=== PATIENT | female | born 1950 | race African-American/Black ===

== ENCOUNTER 2019-05-29 09:24 | Inpatient (IN) | payer OTHER ==
[~2019-05-29] VITALS: Ht 165.1 cm; Wt 79.1 kg
[~2019-05-29 09:24] MED LIST: BACL20TA PO; BUPR-4 PO; DICL100T11 PO; FERR325T50 PO; FURO1TAB31 PO; OXY20CRT PO; OXYC10TA44 PO; POT20T PO; PREG50CA PO; SERT25TA84 PO
[2019-05-29 09:54] LABS: Hemoglobin 8.7 g/dL (12.2-16.2); Red Cell Distribution Width 18.5 % (11.8-14.3)
[2019-05-29 09:58] LABS: Hematocrit 29.6 % (36.0-46.0); Mean Corpuscular Hemoglobin 24.3 pg (28.0-32.0); Mean Corpuscular Hgb Conc. 29.3 g/dL (32.0-36.0); Mean Corpuscular Volume 82.9 fL (80.0-100.0); Platelet Count (auto) 342 10^3/uL (140-450); Red Blood Cells 3.57 10^6/uL (4.0-5.20)
[2019-05-29 10:06] LABS: Band Neutrophils % (manual) 0; Basophils % (manual) 0 (0.0-2.0); Blast Cells 0; Eosinophils % (manual) 0 (0-7); Metamyelocytes % 0; Monocytes % (manual) 0 (0-12); Myelocytes % 0; Promyelocytes % 0; Reactive Lymphocytes 0; White Blood Cell 117.1 10^3/uL (4.4-10.8)
[2019-05-29 10:10] LABS: INR 1.12 (0.9-1.15); Partial Thromboplastin Time 33.4 sec (23.64-32.05)
[2019-05-29 10:12] LABS: Calcium 8.9 mg/dL (8.5-10.1); Potassium 3.3 mmol/L (3.5-5.1)
[2019-05-29 10:20] LABS: Albumin 2.5 g/dL (3.4-5.0); BUN/Creatinine Ratio 35.2; Bilirubin, Total 0.4 mg/dL (0.2-1.0); Total Protein 5.8 g/dL (6.4-8.2)
[2019-05-29 11:35] LABS: Urine Bacteria MOD /hpf (None Seen); Urine Blood 1+ /uL (Negative); Urine Mucus FEW (None Seen); Urine Specific Gravity 1.009 (1.001-1.035); Urine WBC 424 /hpf (0 - 5); Urine WBC Clumps PRESENT /hpf (None Seen)
[2019-05-29 11:44] LABS: Amphetamine Screen, Urine NEGATIVE (NEGATIVE); Barbiturate Scree,Urine NEGATIVE (NEGATIVE); Benzodiazephine Screen, Urine NEGATIVE (NEGATIVE); Cannabinoid Screen, Urine NEGATIVE (NEGATIVE); Cocaine Screen, Urine NEGATIVE (NEGATIVE); Opiate Scree,Urine POSITIVE (NEGATIVE); Phencyclidine Screen, Urine NEGATIVE (NEGATIVE)
[2019-05-29 11:55] LABS: Lymphocytes % (manual) 94 (10.0-50.0)
[2019-05-29 11:59] LABS: Alcohol, Urine < 3.0 mg/dL (0-5)
[2019-05-29] MEDS ORDERED: cefTRIAXone 1GM/50ML D5W 50 ML IV ONE (12:15)
[2019-05-29] MEDS ORDERED: POTASSIUM EFFERVESENT TAB 25 MEQ PO ONE (12:15)
[2019-05-29] MEDS ORDERED: HYDROcodone-ACET 5/325MG TAB PO PRN (12:45)
[2019-05-29] MEDS ORDERED: ACETAMINOPHEN 500 MG TAB PO PRN (12:45)
[2019-05-29] MEDS ORDERED: NITROGLYCERIN 0.4 MG SL TAB SL PRN (12:45)
[2019-05-29] MEDS ORDERED: MORPHINE SULF INJ 2 MG/ML SYRINGE 1ML IV PRN (12:45)
[2019-05-29] MEDS ORDERED: ONDANSETRON HCL 4 MG/2 ML VIAL IV PRN (12:45)
[2019-05-29] MEDS ORDERED: SERTRALINE HCL 50 MG TAB PO ONE (13:00)
[2019-05-29] MEDS ORDERED: PREGABALIN 25 MG CAP PO SCH (14:00)
[2019-05-29 15:36] VITALS: BP 137/68
[2019-05-29] MEDS ORDERED: LORA0.5T12 PO (16:19)
[2019-05-29] MEDS ORDERED: DICL75TA2 PO (16:54)
[2019-05-29] MEDS ORDERED: GABA300C10 PO (16:54)
[2019-05-29] MEDS ORDERED: [UNRECOGNIZED DRUG - CODE] PO (16:54)
[2019-05-29 20:00] VITALS: BP 142/53
[2019-05-29 21:48] VITALS: BP 142/53
[2019-05-30 05:22] VITALS: BP 121/70
[2019-05-30 05:40] LABS: Hemoglobin 8.2 g/dL (12.2-16.2); Red Cell Distribution Width 18.1 % (11.8-14.3)
[2019-05-30 05:45] LABS: Mean Corpuscular Hemoglobin 24.2 pg (28.0-32.0); Mean Corpuscular Hgb Conc. 29.4 g/dL (32.0-36.0); Mean Corpuscular Volume 82.1 fL (80.0-100.0); Platelet Count (auto) 344 10^3/uL (140-450); Red Blood Cells 3.41 10^6/uL (4.0-5.20)
[2019-05-30 06:02] LABS: BUN/Creatinine Ratio 34.4; Calcium 8.8 mg/dL (8.5-10.1)
[2019-05-30 06:13] LABS: White Blood Cell 102.2 10^3/uL (4.4-10.8)
[2019-05-30 06:14] LABS: Band Neutrophils % (manual) 0; Basophils % (manual) 0 (0.0-2.0); Blast Cells 0; Eosinophils % (manual) 0 (0-7); Metamyelocytes % 0; Myelocytes % 0; Promyelocytes % 0; Reactive Lymphocytes 0
[2019-05-30 07:13] LABS: Lymphocytes % (manual) 91 (10.0-50.0); Monocytes % (manual) 2 (0-12)
[2019-05-30 08:00] VITALS: BP 155/55
[2019-05-30] MEDS: FAMOTIDINE 20 MG TAB PO SCH (08:53)
[2019-05-30] MEDS: MORPHINE SULF INJ 2 MG/ML SYRINGE 1ML IV PRN ×2 (08:54→15:36)
[2019-05-30] MEDS: SERTRALINE HCL 50 MG TAB PO SCH (08:54)
[2019-05-30] MEDS ORDERED: cefTRIAXone 1GM/50ML D5W 50 ML IV SCH (09:00)
[2019-05-30 12:00] VITALS: BP 144/52
[2019-05-30 17:00] VITALS: BP 149/74
[2019-05-30 20:00] VITALS: BP 149/72
[2019-05-30 22:00] VITALS: BP 149/72
[2019-05-30] MEDS ORDERED: GABAPENTIN 100 MG CAP ONE (22:07)
[2019-05-30] MEDS: MUPIROCIN 2% OINT 15gm or 22gm EACHNOSTRI SCH (22:38)
[2019-05-30] MEDS: LORazepam 0.5 MG TAB PO SCH (22:39)
[2019-05-30] MEDS: buPROPion HCL 100 MG TAB PO SCH (22:39)
[2019-05-30] MEDS: GABAPENTIN 300 MG CAP PO SCH (22:39)
[2019-05-31 01:57] VITALS: BP 149/72
[2019-05-31] MEDS: OXYCODONE W/ ACETAMINOPHEN 5/325MG TABLET PO PRN ×2 (03:00→11:08)
[2019-05-31 05:00] VITALS: BP 156/70
[2019-05-31] MEDS ORDERED: GABAPENTIN 100 MG CAP ONE (05:21)
[2019-05-31] MEDS: LORazepam 0.5 MG TAB PO SCH ×3 (05:27→23:46)
[2019-05-31] MEDS: buPROPion HCL 100 MG TAB PO SCH ×3 (05:28→23:46)
[2019-05-31] MEDS: GABAPENTIN 300 MG CAP PO SCH ×5 (05:28→23:48)
[2019-05-31 05:34] LABS: Hemoglobin 8.6 g/dL (12.2-16.2)
[2019-05-31 05:39] LABS: Hematocrit 29.9 % (36.0-46.0); Mean Corpuscular Hemoglobin 23.6 pg (28.0-32.0); Mean Corpuscular Hgb Conc. 28.7 g/dL (32.0-36.0); Mean Corpuscular Volume 82.2 fL (80.0-100.0); Platelet Count (auto) 353 10^3/uL (140-450); Red Blood Cells 3.63 10^6/uL (4.0-5.20); Red Cell Distribution Width 18.1 % (11.8-14.3)
[2019-05-31 05:45] LABS: White Blood Cell 106.9 10^3/uL (4.4-10.8)
[2019-05-31 05:46] LABS: Band Neutrophils % (manual) 0; Basophils % (manual) 0 (0.0-2.0); Blast Cells 0; Eosinophils % (manual) 0 (0-7); Metamyelocytes % 0; Myelocytes % 0; Promyelocytes % 0; Reactive Lymphocytes 0
[2019-05-31 05:51] LABS: INR 1.17 (0.9-1.15); Partial Thromboplastin Time 33.1 sec (23.64-32.05)
[2019-05-31 07:15] LABS: Lymphocytes % (manual) 92 (10.0-50.0); Monocytes % (manual) 1 (0-12)
[2019-05-31 08:00] VITALS: BP 148/68
[2019-05-31] MEDS: MUPIROCIN 2% OINT 15gm or 22gm EACHNOSTRI SCH ×2 (10:02→23:47)
[2019-05-31] MEDS: ENOXAPARIN SOD 40 MG/0.4 ML SYRINGE SC SCH (10:03)
[2019-05-31] MEDS: FAMOTIDINE 20 MG TAB PO SCH (10:04)
[2019-05-31] MEDS: SERTRALINE HCL 50 MG TAB PO SCH (10:05)
[2019-05-31] MEDS: ERTAPENEM SOD INJ 1 GM in SODIUM CHL 0.9% 50 ML IV SCH (10:20)
[2019-05-31 12:00] VITALS: BP 143/74
[2019-05-31] MEDS: MORPHINE SULF INJ 2 MG/ML SYRINGE 1ML IV PRN ×2 (14:40→23:48)
[2019-05-31 17:02] VITALS: BP 161/80
[2019-05-31 22:00] VITALS: BP 159/76
[2019-06-01 05:00] VITALS: BP 147/67
[2019-06-01 05:29] LABS: Hemoglobin 9.5 g/dL (12.2-16.2); Mean Corpuscular Volume 82.2 fL (80.0-100.0)
[2019-06-01 05:34] LABS: Hematocrit 33.2 % (36.0-46.0); Mean Corpuscular Hemoglobin 23.6 pg (28.0-32.0); Mean Corpuscular Hgb Conc. 28.7 g/dL (32.0-36.0); Platelet Count (auto) 338 10^3/uL (140-450); Red Blood Cells 4.04 10^6/uL (4.0-5.20); Red Cell Distribution Width 18.6 % (11.8-14.3)
[2019-06-01 05:40] LABS: White Blood Cell 108.3 10^3/uL (4.4-10.8)
[2019-06-01 05:42] LABS: Band Neutrophils % (manual) 0; Basophils % (manual) 0 (0.0-2.0); Blast Cells 0; Eosinophils % (manual) 0 (0-7); Metamyelocytes % 0; Myelocytes % 0; Promyelocytes % 0; Reactive Lymphocytes 0
[2019-06-01 05:49] LABS: Calcium 9.1 mg/dL (8.5-10.1); Potassium 3.5 mmol/L (3.5-5.1)
[2019-06-01 05:52] LABS: BUN/Creatinine Ratio 18.2
[2019-06-01 06:02] LABS: Lymphocytes % (manual) 95 (10.0-50.0); Monocytes % (manual) 1 (0-12)
[2019-06-01] MEDS: LORazepam 0.5 MG TAB PO SCH ×3 (06:26→23:00)
[2019-06-01] MEDS: buPROPion HCL 100 MG TAB PO SCH ×3 (06:26→23:01)
[2019-06-01] MEDS: MORPHINE SULF INJ 2 MG/ML SYRINGE 1ML IV PRN ×2 (07:14→23:02)
[2019-06-01] MEDS: OXYCODONE W/ ACETAMINOPHEN 5/325MG TABLET PO PRN ×2 (08:54→19:06)
[2019-06-01 09:08] VITALS: BP 144/65
[2019-06-01] MEDS: ENOXAPARIN SOD 40 MG/0.4 ML SYRINGE SC SCH (10:28)
[2019-06-01] MEDS: MUPIROCIN 2% OINT 15gm or 22gm EACHNOSTRI SCH ×2 (10:29→23:00)
[2019-06-01] MEDS: SERTRALINE HCL 50 MG TAB PO SCH (10:29)
[2019-06-01] MEDS: FAMOTIDINE 20 MG TAB PO SCH (10:29)
[2019-06-01] MEDS: ERTAPENEM SOD INJ 1 GM in SODIUM CHL 0.9% 50 ML IV SCH (11:02)
[2019-06-01 12:40] VITALS: BP 159/81
[2019-06-01 17:24] VITALS: BP 171/76
[2019-06-01] MEDS ORDERED: LEVO500T21 PO (21:04)
[2019-06-01] MEDS ORDERED: CLIN300C8 PO (21:04)
[2019-06-01] MEDS ORDERED: PROBTAB12 OR (21:04)
[2019-06-01 22:00] VITALS: BP 158/90
[2019-06-01] MEDS: GABAPENTIN 300 MG CAP PO SCH (23:01)
[2019-06-01] MEDS: CLINDAMYCIN HCL 150 MG CAP PO SCH (23:01)
[2019-06-02 05:15] LABS: Hematocrit 34.3 % (36.0-46.0); Hemoglobin 9.7 g/dL (12.2-16.2); Mean Corpuscular Hemoglobin 23.2 pg (28.0-32.0); Mean Corpuscular Hgb Conc. 28.4 g/dL (32.0-36.0); Mean Corpuscular Volume 81.9 fL (80.0-100.0); Platelet Count (auto) 350 10^3/uL (140-450); Red Blood Cells 4.19 10^6/uL (4.0-5.20)
[2019-06-02 05:19] VITALS: BP 159/89
[2019-06-02 05:19] LABS: Band Neutrophils % (manual) 0; Basophils % (manual) 0 (0.0-2.0); Blast Cells 0; Eosinophils % (manual) 0 (0-7); Metamyelocytes % 0; Myelocytes % 0; Promyelocytes % 0; Reactive Lymphocytes 0
[2019-06-02 05:35] LABS: BUN/Creatinine Ratio 12.9; Calcium 9.3 mg/dL (8.5-10.1); Potassium 4.5 mmol/L (3.5-5.1)
[2019-06-02 05:37] LABS: Lymphocytes % (manual) 95 (10.0-50.0); Monocytes % (manual) 1 (0-12)
[2019-06-02] MEDS: CLINDAMYCIN HCL 150 MG CAP PO SCH (07:13)
[2019-06-02] MEDS: LORazepam 0.5 MG TAB PO SCH ×3 (07:13→09:01)
[2019-06-02] MEDS: buPROPion HCL 100 MG TAB PO SCH ×3 (07:13→21:58)
[2019-06-02 08:42] VITALS: BP_SYST 15; BP_SYST 158; BP_DIAS 80
[2019-06-02] MEDS ORDERED: VANCOMYCIN 1GM/250ML 250 ML IV ONE (08:45)
[2019-06-02] MEDS ORDERED: VANCOMYCIN PER PHARMACY 0 MG IV SCH (08:45)
[2019-06-02] MEDS ORDERED: amLODIPine BESYLATE 5 MG TAB PO ONE (08:45)
[2019-06-02] MEDS ORDERED: hydrALAZINE HCL 20 MG/ML VL IV PRN (08:45)
[2019-06-02] MEDS: GABAPENTIN 300 MG CAP PO SCH (08:46)
[2019-06-02] MEDS ORDERED: levoFLOXacin 500 MG TAB PO SCH (10:00)
[2019-06-02] MEDS: ENOXAPARIN SOD 40 MG/0.4 ML SYRINGE SC SCH ×2 (10:00→11:48)
[2019-06-02] MEDS ORDERED: NS IV SCH ×2 (11:00)
[2019-06-02] MEDS ORDERED: MEROPENEM 1 GM/50 ML IV SCH ×2 (11:00)
[2019-06-02] MEDS: FAMOTIDINE 20 MG TAB PO SCH (11:49)
[2019-06-02] MEDS: SERTRALINE HCL 50 MG TAB PO SCH (11:50)
[2019-06-02] MEDS: MUPIROCIN 2% OINT 15gm or 22gm EACHNOSTRI SCH ×2 (11:50→21:58)
[2019-06-02] MEDS: OXYCODONE W/ ACETAMINOPHEN 5/325MG TABLET PO PRN (12:09)
[2019-06-02 12:50] VITALS: BP 167/91
[2019-06-02] MEDS: MEROPENEM 1 GM/50 ML IV SCH ×2 (14:21)
[2019-06-02] MEDS: NS IV SCH ×2 (14:21)
[2019-06-02] MEDS: amLODIPine BESYLATE 5 MG TAB PO SCH (14:22)
[2019-06-02 16:59] VITALS: BP 157/79
[2019-06-02] MEDS ORDERED: LORazepam 0.5 MG TAB PO SCH (18:00)
[2019-06-02] MEDS ORDERED: GABAPENTIN 300 MG CAP PO SCH (18:00)
[2019-06-02] MEDS ORDERED: ACETAMINOPHEN 500 MG TAB PO PRN (19:30)
[2019-06-02] MEDS ORDERED: KETOROLAC TROMETH 15 mg/ml 1ML VL IV PRN (19:30)
[2019-06-02 21:57] VITALS: BP 137/79
[2019-06-02] MEDS: VANCOMYCIN 1GM/250ML 250 ML IV SCH (22:01)
[2019-06-02 22:50] VITALS: BP 137/79
[2019-06-03] MEDS: NS IV SCH ×8 (01:03→22:27)
[2019-06-03] MEDS: MEROPENEM 1 GM/50 ML IV SCH ×8 (01:03→22:27)
[2019-06-03 05:05] LABS: Hematocrit 34.3 % (36.0-46.0); Hemoglobin 10.6 g/dL (12.2-16.2); Mean Corpuscular Hemoglobin 24.4 pg (28.0-32.0); Mean Corpuscular Hgb Conc. 30.9 g/dL (32.0-36.0); Platelet Count (auto) 370 10^3/uL (140-450); Red Blood Cells 4.35 10^6/uL (4.0-5.20); Red Cell Distribution Width 17.5 % (11.8-14.3)
[2019-06-03 05:12] LABS: Band Neutrophils % (manual) 0; Basophils % (manual) 0 (0.0-2.0); Blast Cells 0; Eosinophils % (manual) 0 (0-7); Metamyelocytes % 0; Myelocytes % 0; Promyelocytes % 0; Reactive Lymphocytes 0; White Blood Cell 194.9 10^3/uL (4.4-10.8)
[2019-06-03 05:22] LABS: BUN/Creatinine Ratio 13.2; Calcium 9.3 mg/dL (8.5-10.1); Potassium 4.2 mmol/L (3.5-5.1)
[2019-06-03 05:26] VITALS: BP 148/76
[2019-06-03] MEDS: buPROPion HCL 100 MG TAB PO SCH ×3 (06:00→22:28)
[2019-06-03 06:17] LABS: Lymphocytes % (manual) 96 (10.0-50.0); Monocytes % (manual) 1 (0-12)
[2019-06-03 09:00] VITALS: BP 156/64
[2019-06-03] MEDS: MUPIROCIN 2% OINT 15gm or 22gm EACHNOSTRI SCH ×2 (09:57→22:54)
[2019-06-03] MEDS: SERTRALINE HCL 50 MG TAB PO SCH (09:57)
[2019-06-03] MEDS: VANCOMYCIN 1GM/250ML 250 ML IV SCH ×2 (09:57→18:22)
[2019-06-03] MEDS: FAMOTIDINE 20 MG TAB PO SCH (09:59)
[2019-06-03] MEDS: amLODIPine BESYLATE 5 MG TAB PO SCH (09:59)
[2019-06-03] MEDS: ENOXAPARIN SOD 40 MG/0.4 ML SYRINGE SC SCH (09:59)
[2019-06-03 13:00] VITALS: BP 124/80
[2019-06-03 17:00] VITALS: BP 181/85
[2019-06-03 22:00] VITALS: BP 157/88
[2019-06-03 22:10] LABS: Albumin 3.1 g/dL (3.4-5.0); BUN/Creatinine Ratio 13.3; Calcium 8.9 mg/dL (8.5-10.1); Potassium 4.7 mmol/L (3.5-5.1)
[2019-06-03 22:13] LABS: Bilirubin, Total 0.6 mg/dL (0.2-1.0); Total Protein 6.2 g/dL (6.4-8.2)
[2019-06-03 22:17] LABS: Free T4 (Free Thyroxine) 1.54 ng/dL (0.89-1.76)
[2019-06-03 22:18] LABS: Folate (Folic Acid) > 24.00 ng/mL (5.38-24)
[2019-06-03] MEDS: MIRTAZAPINE 30 MG TAB PO SCH (22:51)
[2019-06-03] MEDS: hydroxyUREA 500 MG CAP PO SCH (22:54)
[2019-06-04 00:45] VITALS: BP 139/71
[2019-06-04] MEDS: VANCOMYCIN 1GM/250ML 250 ML IV SCH ×2 (03:40→17:08)
[2019-06-04 04:00] VITALS: BP 169/75
[2019-06-04 05:14] LABS: Hematocrit 35.8 % (36.0-46.0); Hemoglobin 10.6 g/dL (12.2-16.2); Mean Corpuscular Hgb Conc. 29.5 g/dL (32.0-36.0); Platelet Count (auto) 402 10^3/uL (140-450); Red Blood Cells 4.58 10^6/uL (4.0-5.20)
[2019-06-04 05:16] LABS: White Blood Cell 230.7 10^3/uL (4.4-10.8)
[2019-06-04 05:22] LABS: Band Neutrophils % (manual) 0; Basophils % (manual) 0 (0.0-2.0); Blast Cells 0; Eosinophils % (manual) 0 (0-7); Metamyelocytes % 0; Myelocytes % 0; Promyelocytes % 0; Reactive Lymphocytes 0
[2019-06-04] MEDS: buPROPion HCL 100 MG TAB PO SCH ×3 (05:28→20:12)
[2019-06-04 05:44] LABS: Albumin 3.4 g/dL (3.4-5.0); Calcium 9.5 mg/dL (8.5-10.1); Potassium 3.6 mmol/L (3.5-5.1)
[2019-06-04 05:50] LABS: BUN/Creatinine Ratio 15.9; Bilirubin, Total 0.6 mg/dL (0.2-1.0); Total Protein 6.1 g/dL (6.4-8.2)
[2019-06-04] MEDS: MEROPENEM 1 GM/50 ML IV SCH ×6 (06:09→19:56)
[2019-06-04] MEDS: NS IV SCH ×6 (06:09→19:56)
[2019-06-04 06:32] LABS: Lymphocytes % (manual) 93 (10.0-50.0); Monocytes % (manual) 1 (0-12)
[2019-06-04 08:00] VITALS: BP 158/84
[2019-06-04] MEDS: SODIUM CHLORIDE 0.9% 1,000 ML IV SCH ×2 (09:34→23:57)
[2019-06-04] MEDS: hydroxyUREA 500 MG CAP PO SCH ×2 (10:00→20:11)
[2019-06-04] MEDS: OXYBUTYNIN CHL 5 MG TAB PO SCH ×2 (10:00→20:11)
[2019-06-04] MEDS: ALLOPURINOL 300 MG TAB PO SCH (10:06)
[2019-06-04] MEDS: FAMOTIDINE 20 MG TAB PO SCH (10:06)
[2019-06-04] MEDS: amLODIPine BESYLATE 5 MG TAB PO SCH (10:06)
[2019-06-04] MEDS: SERTRALINE HCL 50 MG TAB PO SCH (10:07)
[2019-06-04] MEDS: ENOXAPARIN SOD 40 MG/0.4 ML SYRINGE SC SCH (10:07)
[2019-06-04] MEDS: MUPIROCIN 2% OINT 15gm or 22gm EACHNOSTRI SCH (10:10)
[2019-06-04 12:00] VITALS: BP 161/77
[2019-06-04] MEDS: LACTULOSE 20Gm/30ML SOLN PO SCH ×2 (14:22→20:11)
[2019-06-04 16:00] VITALS: BP 160/69
[2019-06-04 20:00] VITALS: BP 147/60
[2019-06-04] MEDS: MIRTAZAPINE 30 MG TAB PO SCH (20:11)
[2019-06-05] VITALS: BP 157/66
[2019-06-05 04:00] VITALS: BP 155/65
[2019-06-05 04:06] LABS: RPR Non Reactive (Non Reactive)
[2019-06-05 05:19] LABS: Hemoglobin 10.5 g/dL (12.2-16.2)
[2019-06-05 05:22] LABS: Hematocrit 35.7 % (36.0-46.0); Mean Corpuscular Hemoglobin 23.6 pg (28.0-32.0); Mean Corpuscular Hgb Conc. 29.4 g/dL (32.0-36.0); Mean Corpuscular Volume 80.2 fL (80.0-100.0); Platelet Count (auto) 326 10^3/uL (140-450); Red Blood Cells 4.45 10^6/uL (4.0-5.20); Red Cell Distribution Width 17.9 % (11.8-14.3)
[2019-06-05 05:27] LABS: Band Neutrophils % (manual) 0; Basophils % (manual) 0 (0.0-2.0); Blast Cells 0; Eosinophils % (manual) 0 (0-7); Metamyelocytes % 0; Myelocytes % 0; Promyelocytes % 0; Reactive Lymphocytes 0
[2019-06-05] MEDS: VANCOMYCIN 1GM/250ML 250 ML IV SCH ×2 (05:28→18:03)
[2019-06-05 05:38] LABS: Albumin 3.3 g/dL (3.4-5.0); Calcium 9.3 mg/dL (8.5-10.1)
[2019-06-05] MEDS: LACTULOSE 20Gm/30ML SOLN PO SCH ×3 (05:38→20:08)
[2019-06-05] MEDS: buPROPion HCL 100 MG TAB PO SCH ×3 (05:38→20:53)
[2019-06-05 05:43] LABS: Bilirubin, Total 0.5 mg/dL (0.2-1.0); Total Protein 5.9 g/dL (6.4-8.2)
[2019-06-05] MEDS: MEROPENEM 1 GM/50 ML IV SCH ×6 (06:42→20:51)
[2019-06-05] MEDS: NS IV SCH ×6 (06:42→20:51)
[2019-06-05 07:40] VITALS: BP 153/77
[2019-06-05 07:42] LABS: Lymphocytes % (manual) 96 (10.0-50.0); Monocytes % (manual) 1 (0-12)
[2019-06-05] MEDS: ENOXAPARIN SOD 40 MG/0.4 ML SYRINGE SC SCH (10:16)
[2019-06-05] MEDS: ALLOPURINOL 300 MG TAB PO SCH (10:17)
[2019-06-05] MEDS: hydroxyUREA 500 MG CAP PO SCH ×2 (10:17→20:52)
[2019-06-05] MEDS: OXYBUTYNIN CHL 5 MG TAB PO SCH ×2 (10:17→20:52)
[2019-06-05] MEDS: amLODIPine BESYLATE 5 MG TAB PO SCH (10:19)
[2019-06-05] MEDS: FAMOTIDINE 20 MG TAB PO SCH (10:19)
[2019-06-05] MEDS: SERTRALINE HCL 50 MG TAB PO SCH (10:20)
[2019-06-05 11:40] VITALS: BP 119/62
[2019-06-05] MEDS: SODIUM CHLORIDE 0.9% 1,000 ML IV SCH ×2 (11:52→21:03)
[2019-06-05] MEDS: POTASSIUM CHL 20MEQ/100ML 100 ML IV SCH ×2 (15:27→17:30)
[2019-06-05 15:40] VITALS: BP 137/96
[2019-06-05 20:00] VITALS: BP 124/54
[2019-06-05] MEDS: MIRTAZAPINE 30 MG TAB PO SCH (20:52)
[2019-06-06] VITALS: BP 138/43
[2019-06-06] MEDS: LACTULOSE 20Gm/30ML SOLN PO SCH (04:10)
[2019-06-06] MEDS: buPROPion HCL 100 MG TAB PO SCH (04:12)
[2019-06-06] MEDS: NS IV SCH ×2 (04:14)
[2019-06-06] MEDS: MEROPENEM 1 GM/50 ML IV SCH ×2 (04:14)
[2019-06-06 05:40] LABS: Hematocrit 33.6 % (36.0-46.0); Mean Corpuscular Hemoglobin 23.8 pg (28.0-32.0); Mean Corpuscular Hgb Conc. 29.6 g/dL (32.0-36.0); Mean Corpuscular Volume 80.4 fL (80.0-100.0); Platelet Count (auto) 282 10^3/uL (140-450); Red Blood Cells 4.19 10^6/uL (4.0-5.20); Red Cell Distribution Width 17.9 % (11.8-14.3)
[2019-06-06 05:53] VITALS: BP 175/67
[2019-06-06 05:56] LABS: Albumin 3.3 g/dL (3.4-5.0); Potassium 3.3 mmol/L (3.5-5.1)
[2019-06-06 06:01] LABS: BUN/Creatinine Ratio 26.9; Bilirubin, Total 0.7 mg/dL (0.2-1.0); Total Protein 5.6 g/dL (6.4-8.2)
[2019-06-06 06:04] LABS: Band Neutrophils % (manual) 0; Basophils % (manual) 0 (0.0-2.0); Blast Cells 0; Metamyelocytes % 0; Monocytes % (manual) 0 (0-12); Myelocytes % 0; Promyelocytes % 0; Reactive Lymphocytes 0; White Blood Cell 179.2 10^3/uL (4.4-10.8)
[2019-06-06] MEDS: VANCOMYCIN 1GM/250ML 250 ML IV SCH (06:16)
[2019-06-06 06:59] LABS: Eosinophils % (manual) 1 (0-7); Lymphocytes % (manual) 97 (10.0-50.0)
[2019-06-06 09:00] VITALS: BP 145/58
[2019-06-06] MEDS: FAMOTIDINE 20 MG TAB PO SCH (10:41)
[2019-06-06] MEDS: amLODIPine BESYLATE 5 MG TAB PO SCH (10:43)
[2019-06-06] MEDS: SERTRALINE HCL 50 MG TAB PO SCH (10:44)
[2019-06-06] MEDS: ALLOPURINOL 300 MG TAB PO SCH (10:44)
[2019-06-06] MEDS: OXYBUTYNIN CHL 5 MG TAB PO SCH (10:56)
[2019-06-06] MEDS: hydroxyUREA 500 MG CAP PO SCH (10:56)
[2019-06-06] MEDS: ENOXAPARIN SOD 40 MG/0.4 ML SYRINGE SC SCH (10:56)
[2019-06-06 13:00] VITALS: BP 143/67
[2019-06-06 14:03] VITALS: BP 145/58
[2019-06-06] MEDS ORDERED: VANCOMYCIN 1GM/250ML 250 ML IV SCH (17:00)
== END 2019-06-06 16:10 | disposition hospice, home (50) | DRG 698 ==
LOC: ER 09:24 → EDBD 09:24 → TELE 09:25 → TELE-CENTR 17:44 → DOU IN ICU 06-04 00:55 → TELE-CENTR 06-06 05:19
PROVIDERS: ADMIT Nurse Practitioner Acute Care; ATTEND Hospitalist
DX: T83.031A Leakage of indwelling urethral catheter, initial encounter (principal); G93.41 Metabolic encephalopathy; L89.313 Pressure ulcer of right buttock, stage 3; N30.01 Acute cystitis with hematuria; G82.20 Paraplegia, unspecified; C91.10 Chronic lymphocytic leukemia of B-cell type not having achieved remission; L03.115 Cellulitis of right lower limb; E44.0 Moderate protein-calorie malnutrition; R09.89 Other specified symptoms and signs involving the circulatory and respiratory systems; D64.9 Anemia, unspecified; E66.01 Morbid (severe) obesity due to excess calories; N18.3 Chronic kidney disease, stage 3 (moderate); E87.6 Hypokalemia; G89.29 Other chronic pain; F32.9 Major depressive disorder, single episode, unspecified; G47.00 Insomnia, unspecified; K44.9 Diaphragmatic hernia without obstruction or gangrene; N32.81 Overactive bladder; E78.5 Hyperlipidemia, unspecified; Z51.5 Encounter for palliative care; Y83.8 Other surgical procedures as the cause of abnormal reaction of the patient, or of later complication, without mention of misadventure at the time of the procedure; G62.9 Polyneuropathy, unspecified; B95.62 Methicillin resistant Staphylococcus aureus infection as the cause of diseases classified elsewhere; M19.90 Unspecified osteoarthritis, unspecified site; Z74.01 Bed confinement status; Z79.899 Other long term (current) drug therapy; Y92.89 Other specified places as the place of occurrence of the external cause; Z68.29 Body mass index [BMI] 29.0-29.9, adult; Z91.040 Latex allergy status
CPT/HCPCS: 36415; 36600; 70450; 71045; 80048; 80053; 80202; 80307; 81001; 82140; 82607; 82746; 82784; 82805; 82962; 84439; 84443; 84484; 84550; 85007; 85027; 85610; 85730; 86592; 87040; 87081; 87086; 93005; 93306; 93971; 94660; 95819; 96365; 96379; 97110; 97163; 97530; G0378; J0696; J1335; J3480

== ENCOUNTER 2020-02-26 09:07 | Inpatient (IN) | payer OTHER ==
[~2020-02-26] VITALS: Ht 160 cm; Wt 72.1 kg
[2020-02-26] VITALS (9 sets, daily range): BP systolic 105–136; BP diastolic 28–75
[~2020-02-26 09:07] MED LIST changes: +CLIN300C8 PO; +DICL75TA2 PO; +GABA300C10 PO; +LEVO500T21 PO; +LORA0.5T20 PO; -OXY20CRT PO; +PROBTAB12 OR; +[UNRECOGNIZED DRUG - CODE] PO
[2020-02-26 10:38] LABS: Hematocrit 16.5 % (36.0-46.0); Mean Corpuscular Hgb Conc. 27.2 g/dL (32.0-36.0); Mean Corpuscular Volume 77.1 fL (80.0-100.0); Platelet Count (auto) 274 10^3/uL (140-450); Red Blood Cells 2.14 10^6/uL (4.0-5.20); White Blood Cell 28.1 10^3/uL (4.4-10.8)
[2020-02-26 10:48] LABS: Anion Gap 6 (5-15); Blood Urea Nitrogen 33 mg/dL (7-18); Calcium 8.2 mg/dL (8.5-10.1); Carbon Dioxide 24 mmol/L (21-32); Chloride 99 mmol/L (98-107); Glucose 104 mg/dL (74-106); Sodium 129 mmol/L (136-145)
[2020-02-26 10:54] LABS: Alanine Aminotransferase 9 U/L (13-56); Alkaline Phosphatase 69 U/L (45-117); Aspartate Aminotransferase 10 U/L (15-37); BUN/Creatinine Ratio 26.8; Bilirubin, Total 0.3 mg/dL (0.2-1.0); GFR African American 56 mL/min; GFR Non-African American 46 mL/min; Total Protein 4.8 g/dL (6.4-8.2)
[2020-02-26 10:56] LABS: Red Cell Distribution Width 20.9 % (11.8-14.3)
[2020-02-26 10:58] LABS: Hemoglobin 4.5 g/dL (12.2-16.2)
[2020-02-26 10:59] LABS: Basophils % (manual) 0 (0.0-2.0); Blast Cells 0; Eosinophils % (manual) 0 (0-7); Metamyelocytes % 0; Myelocytes % 0; Promyelocytes % 0; Reactive Lymphocytes 0
[2020-02-26 11:37] LABS: INR 1.07 (0.9-1.15); Partial Thromboplastin Time 27.3 sec (23.0-31.2)
[2020-02-26 11:45] LABS: Band Neutrophils % (manual) 1; Lymphocytes % (manual) 79 (10.0-50.0); Monocytes % (manual) 1 (0-12)
[2020-02-26] MEDS ORDERED: cefTRIAXone 1GM/50ML D5W 50 ML IV ONE (12:15)
[2020-02-26] MEDS ORDERED: ONDANSETRON HCL 4 MG/2 ML VIAL ONE (13:53)
[2020-02-26] MEDS ORDERED: OXYCODONE W/ ACETAMINOPHEN 5/325MG TABLET ONE (13:54)
[2020-02-26] MEDS ORDERED: OXYCODONE W/ ACETAMINOPHEN 5/325MG TABLET PO ONE (14:00)
[2020-02-26] MEDS ORDERED: ONDANSETRON HCL 4 MG/2 ML VIAL IV ONE (14:00)
[2020-02-26] MEDS ORDERED: MORPHINE SULF INJ 2 MG/ML SYRINGE 1ML IV PRN (20:00)
[2020-02-26] MEDS ORDERED: ACETAMINOPHEN 500 MG TAB PO PRN (20:00)
[2020-02-26] MEDS ORDERED: MEPERIDINE HCL (25 MG/ML) 1ML VIAL IV PRN (20:00)
[2020-02-26] MEDS ORDERED: NITROGLYCERIN 0.4 MG SL TAB SL PRN (20:00)
[2020-02-26] MEDS ORDERED: ONDANSETRON HCL 4 MG/2 ML VIAL IV PRN (20:00)
[2020-02-26] MEDS ORDERED: OXYCODONE W/ ACETAMINOPHEN 5/325MG TABLET PO PRN (21:45)
[2020-02-26] MEDS ORDERED: GABAPENTIN 100 MG CAP PO SCH (22:00)
[2020-02-26 23:06] LABS: Urine Bacteria MANY /hpf (None Seen); Urine Blood 1+ /uL (Negative); Urine Budding Yeast LOADED /hpf (None Seen); Urine Specific Gravity 1.011 (1.001-1.035); Urine WBC 85 /hpf (0 - 5)
[2020-02-27] VITALS (15 sets, daily range): BP systolic 109–131; BP diastolic 41–72
--- NOTE | 2020-02-27 01:45 | NUR ---
Telemetry admit from ER LANCE RABAGO admitted to Telemetry unit after SBAR received. Patient oriented to Frida chiang RN, unit, room, bed, and unit policies regarding patient care and visiting hours. Patient now on continuous telemetry monitoring, tele box # 29 and telemetry reading on arrival to unit is SR 75. Patient placed on bedside oxygen, weighed by bed scale and encouraged to call if they need something. All questions and concerns addressed, patient verbalized understanding. Note: Came per stretcher, awake alert oriented x 4, placed in the bed comfortably, vital signs checked.
--- NOTE | 2020-02-27 01:50 | NUR ---
Took a picture of the buttocks.
[2020-02-27] MEDS: SODIUM CHLORIDE 0.9% 1,000 ML IV SCH ×3 (02:53→23:30)
[2020-02-27 05:29] LABS: Hematocrit 24.7 % (36.0-46.0); Mean Corpuscular Hemoglobin 22.7 pg (28.0-32.0); Mean Corpuscular Hgb Conc. 27.8 g/dL (32.0-36.0); Mean Corpuscular Volume 81.7 fL (80.0-100.0); Platelet Count (auto) 273 10^3/uL (140-450); Red Blood Cells 3.02 10^6/uL (4.0-5.20); White Blood Cell 28.8 10^3/uL (4.4-10.8)
[2020-02-27] MEDS: GABAPENTIN 100 MG CAP PO SCH ×3 (05:34→21:08)
[2020-02-27] MEDS: BACLOFEN 10 MG TAB PO SCH ×4 (05:34→21:09)
[2020-02-27 05:45] LABS: Potassium 4.6 mmol/L (3.5-5.1)
[2020-02-27 05:55] LABS: BUN/Creatinine Ratio 32.5; Calcium 8.6 mg/dL (8.5-10.1)
[2020-02-27] MEDS ORDERED: CHOL20007 PO (06:09)
--- NOTE | 2020-02-27 07:09 | NUR ---
Report given to Darryl Fenton, patient is resting no respiratory distress.
[2020-02-27 07:46] LABS: Hemoglobin 6.9 g/dL (12.2-16.2)
[2020-02-27 07:47] LABS: Red Cell Distribution Width 21.1 % (11.8-14.3)
[2020-02-27 07:48] LABS: Band Neutrophils % (manual) 0; Basophils % (manual) 0 (0.0-2.0); Blast Cells 0; Metamyelocytes % 0; Myelocytes % 0; Promyelocytes % 0; Reactive Lymphocytes 0
[2020-02-27 07:51] LABS: Eosinophils % (manual) 2 (0-7); Lymphocytes % (manual) 79 (10.0-50.0); Monocytes % (manual) 1 (0-12)
[2020-02-27] MEDS: cefTRIAXone 1GM/50ML D5W 50 ML IV SCH (08:41)
[2020-02-27] MEDS: SERTRALINE HCL 50 MG TAB PO SCH (10:00)
--- NOTE | 2020-02-27 10:00 | NUR ---
WOUND CARE NOTE: IN TO SEE PATIENT AT THIS TIME PER WOUND CONSULT REQUEST. PATIENT ADMITTED TO [facility] WITH DIAGNOSIS OF SOB/UTI. SHE HAS HISTORY WITH PARALYSIS. CURRENT ISREAL SCORE IS 12. PATIENT PLACED ON GEL MATTRESS, WITH AIR PUMP. SKIN/WOUND CARE PLAN UPDATED. PATIENT NOTED TO HAVE SEVERE MASD/INTERTRIGO WITH FULL THICKNESS SKIN EROSION TO ENTIRE SACRUM, BILATERAL BUTTOCKS, UPPER POSTERIOR THIGHS/PERINEUM. WOUND PHOTOS TAKEN UPON ADMIT, BY BEDSIDE NURSE FOR REFERENCE. NO OTHER SKIN ISSUES AT THIS TIME. RECOMMEND: FREQUENT TURN SCHEDULE Q 2 HOURS, PRN CONDITION PERMITS, WITH PRESSURE REDISTRIBUTION USING PILLOWS/WEDGES, ISOFLEX GEL MATTRESS/AIR PUMP;BID/PRN APPLICATION WITH ZGUARD/XEROFORM GAUZE; DIETARY CONSULT;SKIN/WOUND CARE PLAN, CONTINUED MONITORING BY WOUND CARE TEAM. Addendum: 02/27/20 at 1707 by Ninfa Partida RN Amended: Links added.
[2020-02-27] MEDS: AZITHROMYCIN 500MG/ 250ML 250 ML IV SCH (10:05)
[2020-02-27] MEDS: FAMOTIDINE 20 MG TAB PO SCH (10:05)
[2020-02-27] MEDS ORDERED: FUROSEMIDE 20 MG/2 ML VIAL IV ONE (11:00)
--- NOTE | 2020-02-27 11:00 | NUR ---
XEROFOAM WITH Z GUARD AND ANTIFUNGAL CREAM APPLIED TO PATIENT'S BUTTOCKS AND SACRUM PER WOUND RN RECOMMENDATION. PATIENT TOLERATED IT WELL.
[2020-02-27] MEDS ORDERED: POM PO (11:42)
[2020-02-27] MEDS: SODIUM FERR GLUC 62.5MG/5ML 125 MG in SODIUM CHL 0.9% 100 ML IV SCH (15:16)
--- NOTE | 2020-02-27 16:26 | NUR ---
PRBC transfusion 1 unit started as per MD's order. No adverse reaction noted at this time.
[2020-02-27] MEDS: OXYCODONE PO PRN (16:47)
[2020-02-27] MEDS: ACETAMINOPHEN PO PRN (16:47)
--- NOTE | 2020-02-27 17:25 | NUR ---
Phoned Murphy as patient asking to use CPAP at night, her pain medications and cancer medication. gave new orders.
--- NOTE | 2020-02-27 19:13 | NUR ---
Report given to incoming RN Leola, PRBC still transfusing and patient tolerating it well and no adverse reaction noted.
--- NOTE | 2020-02-27 19:59 | NUR ---
Blood transfusion id done without reaction.
--- NOTE | 2020-02-27 20:00 | NUR ---
Opening Shift Note Assumed care of patient, awake and alert. No S/S of distress/SOB or pain. Instructed on POC and to call for assist PRN, will continue to monitor for changes Q1hr and PRN.
[2020-02-28] VITALS (7 sets, daily range): BP systolic 117–145; BP diastolic 44–84
[2020-02-28 05:40] LABS: Hematocrit 28.9 % (36.0-46.0); Hemoglobin 8.3 g/dL (12.2-16.2); Mean Corpuscular Hemoglobin 24.3 pg (28.0-32.0); Mean Corpuscular Hgb Conc. 28.9 g/dL (32.0-36.0); Mean Corpuscular Volume 84.3 fL (80.0-100.0); Platelet Count (auto) 211 10^3/uL (140-450); Red Blood Cells 3.43 10^6/uL (4.0-5.20); White Blood Cell 17.7 10^3/uL (4.4-10.8)
[2020-02-28 05:47] LABS: % Iron Saturation 4.5 % (15-50)
[2020-02-28 05:49] LABS: BUN/Creatinine Ratio 29.5; Calcium 8.4 mg/dL (8.5-10.1); Potassium 3.8 mmol/L (3.5-5.1)
[2020-02-28 05:55] LABS: Folate (Folic Acid) 18.81 ng/mL (5.38-24)
[2020-02-28] MEDS: GABAPENTIN 100 MG CAP PO SCH ×2 (05:56→13:58)
[2020-02-28] MEDS: BACLOFEN 10 MG TAB PO SCH ×3 (05:56→18:04)
[2020-02-28 06:47] LABS: Red Cell Distribution Width 21.2 % (11.8-14.3)
[2020-02-28 06:50] LABS: Basophils % (manual) 0 (0.0-2.0); Blast Cells 0; Eosinophils % (manual) 0 (0-7); Metamyelocytes % 0; Myelocytes % 0; Promyelocytes % 0
--- NOTE | 2020-02-28 07:31 | NUR ---
Report given to Darryl Fenton, patient is resting no distress.
[2020-02-28 07:49] LABS: Band Neutrophils % (manual) 1; Lymphocytes % (manual) 71 (10.0-50.0); Monocytes % (manual) 3 (0-12); Reactive Lymphocytes 11
--- NOTE | 2020-02-28 08:10 | NUR ---
Phoned physical therapy office and left message that ordered PT eval done tfor discharge.
[2020-02-28] MEDS: cefTRIAXone 1GM/50ML D5W 50 ML IV SCH (09:15)
[2020-02-28] MEDS: OXYCODONE PO PRN ×2 (09:16→18:06)
[2020-02-28] MEDS: ACETAMINOPHEN PO PRN ×2 (09:16→18:06)
[2020-02-28] MEDS ORDERED: FOLIC ACID 1 MG TAB PO SCH (10:00)
[2020-02-28] MEDS: AZITHROMYCIN 500MG/ 250ML 250 ML IV SCH (10:00)
[2020-02-28] MEDS: SERTRALINE HCL 50 MG TAB PO SCH (10:00)
[2020-02-28] MEDS: FAMOTIDINE 20 MG TAB PO SCH (10:00)
--- NOTE | 2020-02-28 11:14 | NUR ---
Nutrition Assessment/consult Notes please see attached link for complete assessment Est energy needs BW 72 [id number] kcal (20-23 kcal/kg BW r/t paraplegic) Est protein needs 72-93g (1-1.3g/kg BW r/t wounds hypoalb) Will monitor and reassess prn. Addendum: 02/28/20 at [address] Amended: Links added.
--- NOTE | 2020-02-28 11:24 | NUR ---
Assessment Patient is a 69-year-old alert and oriented female that is pleasant and able to make her needs known. Prior to admission patient lived home with Giovanni and functioned independently. Per patient she has a walker, wheelchair, power chair and deepak lift for home use. Patient is on service with [facility]. Advised patient there is a social service consult for home health vs. SNF placement. Patient is requesting SNF placement. Informed patient a physical therapy evaluation is needed and if she meets criteria MD order will be faxed to contracted facilities. Informed patient she has the right to participate in all discharge planning. Patient does not have an advance directive. Patient has been provided with information for an advanced directive. Patient verbalized understanding and agrees to discharge plan. Addendum: 02/28/20 at 1125 by HILLARY COLON Amended: Links added.
[2020-02-28] MEDS: SODIUM CHLORIDE 0.9% 1,000 ML IV SCH (12:00)
[2020-02-28] MEDS: SODIUM FERR GLUC 62.5MG/5ML 125 MG in SODIUM CHL 0.9% 100 ML IV SCH (13:12)
--- NOTE | 2020-02-28 15:30 | NUR ---
MD at Bedside Dr. Shailesh Arrington was in to see patient and MD left new orders. Patient to be discharged to SNF when bed is available and patient is aware.
--- NOTE | 2020-02-28 15:35 | NUR ---
Faxed SNF packet to [facility] and [facility], awaiting response
--- NOTE | 2020-02-28 15:36 | NUR ---
Packet is not faxed to [facility] as they are only accepting covid + patients at this time, packet also sent to [facility]
--- NOTE | 2020-02-28 15:55 | NUR ---
Spoke with Esther at [facility] they are unable to accept this patient due to her wound care needs.
--- NOTE | 2020-02-28 15:58 | NUR ---
Left vm for admissions at [facility]
--- NOTE | 2020-02-28 16:28 | NUR ---
Rec'd list of contracted SNF providers, forwarded to on-call SAYRA Figueroa.
--- NOTE | 2020-02-28 17:20 | NUR ---
PHONED DR. Shailesh CHANEL PATIENT C/O CONSTIPATION AND WANTED [facility]. LEFT MESSAGE FOR MD TO RETURN CALL.
--- NOTE | 2020-02-28 17:42 | NUR ---
D/C Planning regarding social service consult for hospice evaluation. Spoke to patient regarding new order for hospice. Per Patient she would like [facility] that MD recommended. Faxed clinical information to [facility]. Per Alexandria with [facility] patient has been accepted and service to start upon d.c day. [facility] will transport patient home via gurney 8:30pm.
[2020-02-28] MEDS ORDERED: LEVO500T21 PO (18:23)
[2020-02-28] MEDS ORDERED: FER325T PO (18:24)
--- NOTE | 2020-02-28 18:30 | NUR ---
PHONED DR. Shailesh CHANEL FOR DISCHARGE ORDER.MD NOTED TO HAVE MADE ONE AFTER AND MD RETURNED CALL.
--- NOTE | 2020-02-28 18:40 | NUR ---
RETURNED PATIENT'S OWN MEDICATIONS FROM PHARMACY.
--- NOTE | 2020-02-28 19:28 | NUR ---
REPORT GIVEN TO FOZIA SIMON. PATIENT WAITING FOR HOSPICE TRANSPORT TO HOME. PATIENT [id number] AND WAS IN NO PAIN / DISTRESS AT THIS TIME.
--- NOTE | 2020-02-28 19:45 | NUR ---
ASSUMED CARE, PT. AWAKE, NO C/O PAIN, WAITING FOR TRANSPORT TO D/C HOME WITH HOSPICE.
--- NOTE | 2020-02-28 21:10 | NUR ---
PT. HOME IN STABLE CONDITION, V/S STABLE, D/C PAPERS GIVEN, ANTENNA MACHINE OPERATOR AND IV REMOVED AND ANTENNA MACHINE OPERATOR SENT TO ICU.
--- NOTE | 2020-03-02 12:51 | NUR ---
per Maty in microbiology, patient is positive for MRSA IN blood and urine. Patient dc'd home to hospice.
== END 2020-02-28 21:10 | disposition hospice, home (50) | DRG 698 ==
LOC: ER 09:07 → EDBD 09:07 → TELE 09:08 → TELE-CENTR 23:59
PROVIDERS: ADMIT Nurse Practitioner Acute Care; ATTEND Internal Medicine
PROC: 30230N1 Transfusion of Nonautologous Red Blood Cells into Peripheral Vein, Open Approach (ICD-10-PCS; 2020-02-26)
PROC: 5A09357 Assistance with Respiratory Ventilation, Less than 24 Consecutive Hours, Continuous Positive Airway Pressure (ICD-10-PCS; principal; 2020-02-27)
DX: T83.518A Infection and inflammatory reaction due to other urinary catheter, initial encounter (principal); A41.9 Sepsis, unspecified organism; E43 Unspecified severe protein-calorie malnutrition; N17.0 Acute kidney failure with tubular necrosis; G93.41 Metabolic encephalopathy; C91.10 Chronic lymphocytic leukemia of B-cell type not having achieved remission; G82.20 Paraplegia, unspecified; D80.1 Nonfamilial hypogammaglobulinemia; D64.81 Anemia due to antineoplastic chemotherapy; G62.9 Polyneuropathy, unspecified; N18.30 Chronic kidney disease, stage 3 unspecified; D50.9 Iron deficiency anemia, unspecified; F41.9 Anxiety disorder, unspecified; G25.81 Restless legs syndrome; G47.33 Obstructive sleep apnea (adult) (pediatric); L89.159 Pressure ulcer of sacral region, unspecified stage; T45.1X5A Adverse effect of antineoplastic and immunosuppressive drugs, initial encounter; Z51.5 Encounter for palliative care; L89.309 Pressure ulcer of unspecified buttock, unspecified stage; E53.8 Deficiency of other specified B group vitamins; M54.9 Dorsalgia, unspecified; R53.81 Other malaise; G89.29 Other chronic pain; Z20.828 Contact with and (suspected) exposure to other viral communicable diseases; Z79.899 Other long term (current) drug therapy; Z82.3 Family history of stroke; Y92.89 Other specified places as the place of occurrence of the external cause; Z82.49 Family history of ischemic heart disease and other diseases of the circulatory system; Z82.5 Family history of asthma and other chronic lower respiratory diseases; Z87.440 Personal history of urinary (tract) infections; Z87.891 Personal history of nicotine dependence; Z91.14 Patient's other noncompliance with medication regimen; Z88.5 Allergy status to narcotic agent; Z88.2 Allergy status to sulfonamides; Z91.040 Latex allergy status; M25.59 Pain in other specified joint; N30.90 Cystitis, unspecified without hematuria
CPT/HCPCS: 36415; 71045; 80048; 80053; 81001; 82270; 82746; 83010; 83540; 83550; 83605; 84484; 85007; 85027; 85045; 85379; 85610; 85730; 86850; 86880; 86900; 86901; 86920; 87040; 87077; 87086; 87088; 87186; 87205; 87426; 94660; G0378; J0696; J2405

== ENCOUNTER 2020-04-05 18:03 | Inpatient (IN) | payer OTHER ==
[~2020-04-05] VITALS: Ht 167.6 cm; Wt 93.0 kg
[~2020-04-05 18:03] MED LIST changes: +CHOL20007 PO; -CLIN300C8 PO; +FER325T PO; -FERR325T50 PO; -FURO1TAB31 PO; -LEVO500T21 PO; +LEVO500T31 PO; +POM PO; -POT20T PO; -PREG50CA PO; -PROBTAB12 OR; -SERT25TA84 PO; -[UNRECOGNIZED DRUG - CODE] PO
[2020-04-05 19:11] LABS: Hematocrit 18.2 % (36.0-46.0); Mean Corpuscular Hemoglobin 22.4 pg (28.0-32.0); Mean Corpuscular Volume 86.3 fL (80.0-100.0); Platelet Count (auto) 248 10^3/uL (140-450); Red Blood Cells 2.11 10^6/uL (4.0-5.20); White Blood Cell 21.6 10^3/uL (4.4-10.8)
[2020-04-05 19:25] LABS: Red Cell Distribution Width 23.1 % (11.8-14.3)
[2020-04-05 19:27] LABS: Basophils % (manual) 0 (0.0-2.0); Blast Cells 0; Eosinophils % (manual) 0 (0-7); Hemoglobin 4.7 g/dL (12.2-16.2); Metamyelocytes % 0; Myelocytes % 0; Promyelocytes % 0; Reactive Lymphocytes 0
[2020-04-05 19:33] LABS: Albumin 1.9 g/dL (3.4-5.0); Anion Gap 6 (5-15); Blood Alcohol < 3.0 mg/dL (0-5); Blood Urea Nitrogen 39 mg/dL (7-18); Calcium 8.2 mg/dL (8.5-10.1); Carbon Dioxide 25 mmol/L (21-32); Chloride 98 mmol/L (98-107); Glucose 92 mg/dL (74-106); Potassium 5.3 mmol/L (3.5-5.1); Sodium 129 mmol/L (136-145)
[2020-04-05 19:39] LABS: Alanine Aminotransferase 12 U/L (13-56); Alkaline Phosphatase 66 U/L (45-117); Aspartate Aminotransferase 62 U/L (15-37); BUN/Creatinine Ratio 42.4; Bilirubin, Total 0.4 mg/dL (0.2-1.0); GFR African American 78 mL/min; GFR Non-African American 64 mL/min; Total Protein 4.7 g/dL (6.4-8.2)
[2020-04-05 20:03] LABS: Band Neutrophils % (manual) 5; Lymphocytes % (manual) 69 (10.0-50.0); Monocytes % (manual) 5 (0-12)
[2020-04-06] VITALS (10 sets, daily range): BP systolic 108–139; BP diastolic 32–61
[2020-04-06] MEDS ORDERED: TEMAZEPAM 15 MG CAP PO PRN (01:00)
[2020-04-06] MEDS ORDERED: ONDANSETRON HCL 4 MG/2 ML VIAL IV PRN (01:00)
[2020-04-06] MEDS ORDERED: SODIUM ZIRCONIUM CYCL 10 GM PAK PO ONE (01:00)
[2020-04-06] MEDS ORDERED: ACETAMINOPHEN 325 MG TAB PO PRN (01:00)
[2020-04-06 01:25] LABS: Urine Bacteria MANY /hpf (None Seen); Urine Blood Negative /uL (Negative); Urine Budding Yeast FEW /hpf (None Seen); Urine Hyaline Cast FEW /lpf (0 - 2); Urine Specific Gravity 1.016 (1.001-1.035); Urine WBC 187 /hpf (0 - 5); Urine WBC Clumps PRESENT /hpf (None Seen)
[2020-04-06 01:33] LABS: Amphetamine Screen, Urine NEGATIVE (NEGATIVE); Barbiturate Scree,Urine NEGATIVE (NEGATIVE); Benzodiazephine Screen, Urine POSITIVE (NEGATIVE); Cannabinoid Screen, Urine NEGATIVE (NEGATIVE); Cocaine Screen, Urine NEGATIVE (NEGATIVE); Opiate Scree,Urine NEGATIVE (NEGATIVE); Phencyclidine Screen, Urine NEGATIVE (NEGATIVE)
[2020-04-06] MEDS: cefTRIAXone 1GM/50ML D5W 50 ML IV SCH (04:30)
[2020-04-06] MEDS: buPROPion HCL 100 MG TAB PO SCH ×2 (06:42→19:47)
[2020-04-06] MEDS: GABAPENTIN 300 MG CAP PO SCH ×4 (06:50→20:01)
[2020-04-06] MEDS: FERROUS SULFATE 325 MG TAB PO SCH ×4 (08:00→18:05)
[2020-04-06] MEDS: DexAMETHasone SOD PHOS 10MG/1ML VIAL INJ IV SCH (08:52)
[2020-04-06] MEDS: AZITHROMYCIN 500MG/ 250ML 250 ML IV SCH (08:52)
[2020-04-06 08:55] LABS: Calcium 8.4 mg/dL (8.5-10.1); Potassium 4.8 mmol/L (3.5-5.1)
[2020-04-06 08:56] LABS: BUN/Creatinine Ratio 48.1
[2020-04-06] MEDS ORDERED: FAMOTIDINE 20 MG TAB PO SCH (10:00)
[2020-04-06] MEDS ORDERED: IRON SUCROSE COMPLEX 200 MG in SODIUM CHL 0.9% 100 ML IV SCH (12:00)
[2020-04-06] MEDS ORDERED: FUROSEMIDE 20 MG/2 ML VIAL IV ONE ×2 (17:00→22:15)
[2020-04-06] MEDS: HYDROcodone-ACET 5/325MG TAB PO PRN ×2 (18:05→22:44)
[2020-04-06] MEDS: POTASSIUM EFFERVESENT TAB 25 MEQ PO SCH (20:01)
[2020-04-06] MEDS: PANTOPRAZOLE 40 MG TAB PO SCH (20:01)
[2020-04-06 23:26] LABS: Red Cell Distribution Width 19.3 % (11.8-14.3); White Blood Cell 18.1 10^3/uL (4.4-10.8)
[2020-04-06 23:29] LABS: Hematocrit 29.1 % (36.0-46.0); Hemoglobin 8.8 g/dL (12.2-16.2); Mean Corpuscular Hgb Conc. 30.2 g/dL (32.0-36.0); Platelet Count (auto) 211 10^3/uL (140-450); Red Blood Cells 3.38 10^6/uL (4.0-5.20)
[2020-04-06 23:34] LABS: BUN/Creatinine Ratio 47.9; Calcium 8.5 mg/dL (8.5-10.1); Potassium 4.8 mmol/L (3.5-5.1)
[2020-04-06 23:58] LABS: Basophils % (manual) 0 (0.0-2.0); Blast Cells 0; Eosinophils % (manual) 0 (0-7); Metamyelocytes % 0; Myelocytes % 0; Promyelocytes % 0; Reactive Lymphocytes 0
[2020-04-07 01:21] LABS: Band Neutrophils % (manual) 2
[2020-04-07 01:22] LABS: Lymphocytes % (manual) 82 (10.0-50.0); Monocytes % (manual) 1 (0-12)
[2020-04-07 05:07] LABS: Hemoglobin 8.2 g/dL (12.2-16.2)
[2020-04-07 05:13] LABS: Hematocrit 27.7 % (36.0-46.0); Mean Corpuscular Hemoglobin 25.3 pg (28.0-32.0); Mean Corpuscular Hgb Conc. 29.6 g/dL (32.0-36.0); Mean Corpuscular Volume 85.5 fL (80.0-100.0); Platelet Count (auto) 225 10^3/uL (140-450); Red Blood Cells 3.23 10^6/uL (4.0-5.20); Red Cell Distribution Width 19.6 % (11.8-14.3); White Blood Cell 17.4 10^3/uL (4.4-10.8)
[2020-04-07 05:15] LABS: Albumin 1.9 g/dL (3.4-5.0); Calcium 8.2 mg/dL (8.5-10.1); Potassium 4.4 mmol/L (3.5-5.1)
[2020-04-07] MEDS: GABAPENTIN 300 MG CAP PO SCH ×2 (05:20→13:44)
[2020-04-07] MEDS: POTASSIUM EFFERVESENT TAB 25 MEQ PO SCH (05:20)
[2020-04-07] MEDS: buPROPion HCL 100 MG TAB PO SCH ×2 (05:20→18:16)
[2020-04-07 05:22] LABS: BUN/Creatinine Ratio 57.9; Bilirubin, Total 0.4 mg/dL (0.2-1.0); Total Protein 4.4 g/dL (6.4-8.2)
[2020-04-07 05:25] LABS: Basophils % (manual) 0 (0.0-2.0); Blast Cells 0; Eosinophils % (manual) 0 (0-7); Metamyelocytes % 0; Myelocytes % 0; Promyelocytes % 0
[2020-04-07 08:00] VITALS: BP 122/51
[2020-04-07] MEDS: FERROUS SULFATE 325 MG TAB PO SCH (08:00)
[2020-04-07 08:19] LABS: Band Neutrophils % (manual) 1; Lymphocytes % (manual) 66 (10.0-50.0); Monocytes % (manual) 2 (0-12); Reactive Lymphocytes 8
[2020-04-07] MEDS: cefTRIAXone 1GM/50ML D5W 50 ML IV SCH (08:30)
[2020-04-07] MEDS: HYDROcodone-ACET 5/325MG TAB PO PRN ×2 (08:31→18:17)
[2020-04-07] MEDS: AZITHROMYCIN 500MG/ 250ML 250 ML IV SCH (09:33)
[2020-04-07] MEDS: DexAMETHasone SOD PHOS 10MG/1ML VIAL INJ IV SCH (09:33)
[2020-04-07] MEDS: PANTOPRAZOLE 40 MG TAB PO SCH (09:33)
[2020-04-07] MEDS ORDERED: SODIUM FERR GLUC 62.5MG/5ML 125 MG in SODIUM CHL 0.9% 100 ML IV SCH (12:00)
[2020-04-07] MEDS ORDERED: PANT40T PO (12:21)
[2020-04-07 15:57] VITALS: BP 122/51
[2020-04-07 16:00] VITALS: BP 131/51
== END 2020-04-07 21:25 | disposition home health service (06) | DRG 811 ==
LOC: EDBD 18:03 → ER 18:06 → OVERFLOW 18:07 → CENTRAL 04-06 21:27
PROVIDERS: ADMIT Nurse Practitioner; ATTEND Hospitalist
PROC: 30233N1 Transfusion of Nonautologous Red Blood Cells into Peripheral Vein, Percutaneous Approach (ICD-10-PCS; principal; 2020-04-06)
PROC: 5A09357 Assistance with Respiratory Ventilation, Less than 24 Consecutive Hours, Continuous Positive Airway Pressure (ICD-10-PCS; 2020-04-06)
DX: D64.81 Anemia due to antineoplastic chemotherapy (principal); G93.41 Metabolic encephalopathy; J18.9 Pneumonia, unspecified organism; E87.1 Hypo-osmolality and hyponatremia; N39.0 Urinary tract infection, site not specified; C91.10 Chronic lymphocytic leukemia of B-cell type not having achieved remission; D80.1 Nonfamilial hypogammaglobulinemia; J44.0 Chronic obstructive pulmonary disease with (acute) lower respiratory infection; J91.8 Pleural effusion in other conditions classified elsewhere; E44.1 Mild protein-calorie malnutrition; G82.20 Paraplegia, unspecified; L89.159 Pressure ulcer of sacral region, unspecified stage; R41.0 Disorientation, unspecified; E86.0 Dehydration; D50.9 Iron deficiency anemia, unspecified; E53.8 Deficiency of other specified B group vitamins; E78.5 Hyperlipidemia, unspecified; G47.33 Obstructive sleep apnea (adult) (pediatric); M19.90 Unspecified osteoarthritis, unspecified site; G89.4 Chronic pain syndrome; L89.319 Pressure ulcer of right buttock, unspecified stage; T45.1X5A Adverse effect of antineoplastic and immunosuppressive drugs, initial encounter; Z20.822 Contact with and (suspected) exposure to COVID-19; Z74.01 Bed confinement status; Z82.3 Family history of stroke; Z82.49 Family history of ischemic heart disease and other diseases of the circulatory system; Z82.5 Family history of asthma and other chronic lower respiratory diseases; Z87.440 Personal history of urinary (tract) infections; Z87.891 Personal history of nicotine dependence; Z88.2 Allergy status to sulfonamides; Z88.6 Allergy status to analgesic agent; Z91.040 Latex allergy status; Y92.89 Other specified places as the place of occurrence of the external cause; Z68.33 Body mass index [BMI] 33.0-33.9, adult; F41.9 Anxiety disorder, unspecified
CPT/HCPCS: 36415; 36430; 70450; 71045; 80048; 80053; 80307; 80320; 81001; 82270; 82728; 83605; 84484; 85007; 85027; 86850; 86900; 86901; 86920; 87040; 87426; 93005; 94660; 96365; 96375; 97163; G0378; J0696; J1100; J1756

== ENCOUNTER 2020-04-10 14:14 | Emergency (ER) | payer OTHER ==
[~2020-04-10] VITALS: Ht 167.6 cm; Wt 90.7 kg
[~2020-04-10 14:14] MED LIST changes: -DICL100T11 PO; -DICL75TA2 PO; -LEVO500T31 PO; +PANT40T PO
[2020-04-10] MEDS ORDERED: SODIUM CHLORIDE 0.9% 1,000 ML IV ONE (14:30)
[2020-04-10 15:46] LABS: Hemoglobin 8.8 g/dL (12.2-16.2)
[2020-04-10 15:48] LABS: Hematocrit 29.8 % (36.0-46.0); Mean Corpuscular Hemoglobin 24.7 pg (28.0-32.0); Mean Corpuscular Hgb Conc. 29.7 g/dL (32.0-36.0); Mean Corpuscular Volume 83.3 fL (80.0-100.0); Platelet Count (auto) 129 10^3/uL (140-450); Red Blood Cells 3.57 10^6/uL (4.0-5.20); Red Cell Distribution Width 17.8 % (11.8-14.3); White Blood Cell 8.1 10^3/uL (4.4-10.8)
[2020-04-10 15:50] LABS: Band Neutrophils % (manual) 0; Basophils % (manual) 0 (0.0-2.0); Blast Cells 0; Metamyelocytes % 0; Myelocytes % 0; Promyelocytes % 0
[2020-04-10 16:02] LABS: INR 1.03 (0.9-1.15); Partial Thromboplastin Time 26.9 sec (23.0-31.2)
[2020-04-10 16:11] LABS: Anion Gap 3 (5-15); Blood Urea Nitrogen 14 mg/dL (7-18); Calcium 7.8 mg/dL (8.5-10.1); Carbon Dioxide 32 mmol/L (21-32); Chloride 103 mmol/L (98-107); Glucose 71 mg/dL (74-106); Potassium 3.8 mmol/L (3.5-5.1); Sodium 138 mmol/L (136-145)
[2020-04-10 16:14] VITALS: BP 160/56
[2020-04-10 16:18] LABS: Alanine Aminotransferase 11 U/L (13-56); Alkaline Phosphatase 62 U/L (45-117); Aspartate Aminotransferase 16 U/L (15-37); BUN/Creatinine Ratio 31.8; Bilirubin, Total 0.4 mg/dL (0.2-1.0); GFR African American 182 mL/min; GFR Non-African American 151 mL/min; Total Protein 4.3 g/dL (6.4-8.2)
[2020-04-10 17:02] LABS: Urine Bacteria MANY /hpf (None Seen); Urine Blood TRACE /uL (Negative); Urine Budding Yeast FEW /hpf (None Seen); Urine Mucus FEW (None Seen); Urine Specific Gravity 1.005 (1.001-1.035); Urine WBC 27 /hpf (0 - 5)
[2020-04-10 17:30] LABS: Eosinophils % (manual) 2 (0-7); Lymphocytes % (manual) 74 (10.0-50.0); Monocytes % (manual) 4 (0-12); Reactive Lymphocytes 4
== END 2020-04-10 18:44 | disposition home or self-care (01) ==
LOC: EDBD 14:14 → ER 14:14
DX: D64.9 Anemia, unspecified (principal); R07.9 Chest pain, unspecified; E43 Unspecified severe protein-calorie malnutrition; Z68.32 Body mass index [BMI] 32.0-32.9, adult; Z20.822 Contact with and (suspected) exposure to COVID-19; Z88.2 Allergy status to sulfonamides; Z88.6 Allergy status to analgesic agent
CPT/HCPCS: 36415; 70450; 71045; 80053; 81001; 82962; 84484; 85007; 85027; 85610; 85730; 86850; 86900; 86901; 87426; 93005; 96360; 96361; 99285; C9803; J7030; U0003

== ENCOUNTER 2020-04-21 13:22 | Inpatient (IN) | payer OTHER ==
[~2020-04-21] VITALS: Ht 167.6 cm; Wt 180.5 kg
[2020-04-21 14:31] LABS: Hematocrit 15.1 % (36.0-46.0); Mean Corpuscular Hemoglobin 22.7 pg (28.0-32.0); Mean Corpuscular Hgb Conc. 28.3 g/dL (32.0-36.0); Mean Corpuscular Volume 80.5 fL (80.0-100.0); Platelet Count (auto) 280 10^3/uL (140-450); Red Blood Cells 1.87 10^6/uL (4.0-5.20); Red Cell Distribution Width 19.1 % (11.8-14.3); White Blood Cell 13.8 10^3/uL (4.4-10.8)
[2020-04-21 14:33] LABS: Hemoglobin 4.3 g/dL (12.2-16.2)
[2020-04-21 14:34] LABS: Basophils % (manual) 0 (0.0-2.0); Blast Cells 0; Eosinophils % (manual) 0 (0-7); Metamyelocytes % 0; Promyelocytes % 0; Reactive Lymphocytes 0
[2020-04-21 14:51] LABS: INR 0.98 (0.9-1.15); Partial Thromboplastin Time 25.3 sec (23.0-31.2)
[2020-04-21 14:55] LABS: Albumin 1.6 g/dL (3.4-5.0); Anion Gap 5 (5-15); Band Neutrophils % (manual) 2; Blood Urea Nitrogen 30 mg/dL (7-18); Calcium 7.7 mg/dL (8.5-10.1); Carbon Dioxide 27 mmol/L (21-32); Chloride 101 mmol/L (98-107); Glucose 94 mg/dL (74-106); Lymphocytes % (manual) 66 (10.0-50.0); Monocytes % (manual) 2 (0-12); Myelocytes % 1; Potassium 4.5 mmol/L (3.5-5.1); Sodium 133 mmol/L (136-145)
[2020-04-21 15:06] LABS: Alanine Aminotransferase 8 U/L (13-56); Alkaline Phosphatase 75 U/L (45-117); Aspartate Aminotransferase 11 U/L (15-37); BUN/Creatinine Ratio 46.2; Bilirubin, Total 0.3 mg/dL (0.2-1.0); GFR African American 116 mL/min; GFR Non-African American 96 mL/min; Total Protein 4.3 g/dL (6.4-8.2)
[2020-04-21] MEDS ORDERED: ONDANSETRON HCL 4 MG/2 ML VIAL IV ONE (16:15)
[2020-04-21 17:45] VITALS: BP 112/27
[2020-04-21 18:00] VITALS: BP 121/29
[2020-04-21] MEDS ORDERED: ACETAMINOPHEN PO PRN (18:30)
[2020-04-21] MEDS ORDERED: MORPHINE SULF INJ 2 MG/ML SYRINGE 1ML IV PRN (18:30)
[2020-04-21] MEDS ORDERED: OXYCODONE PO PRN (18:30)
[2020-04-21] MEDS ORDERED: FUROSEMIDE 20 MG/2 ML VIAL IV ONE (18:30)
[2020-04-21] MEDS ORDERED: NITROGLYCERIN 0.4 MG SL TAB SL PRN (18:30)
[2020-04-21] MEDS ORDERED: ONDANSETRON HCL 4 MG/2 ML VIAL IV PRN (18:30)
[2020-04-21 18:45] VITALS: BP 124/35
[2020-04-21 21:53] VITALS: BP 128/42
[2020-04-21] MEDS: GABAPENTIN 100 MG CAP PO SCH (23:19)
[2020-04-21] MEDS: FERROUS SULFATE 325 MG TAB PO SCH (23:19)
[2020-04-21] MEDS: buPROPion HCL 100 MG TAB PO SCH (23:19)
[2020-04-21] MEDS: BACLOFEN 10 MG TAB PO SCH (23:19)
[2020-04-22] VITALS (10 sets, daily range): BP systolic 102–160; BP diastolic 38–66
[2020-04-22] MEDS: buPROPion HCL 100 MG TAB PO SCH ×3 (05:26→20:48)
[2020-04-22] MEDS: GABAPENTIN 100 MG CAP PO SCH ×3 (05:26→20:48)
[2020-04-22] MEDS: FAMOTIDINE 20 MG TAB PO SCH (05:26)
[2020-04-22] MEDS: FERROUS SULFATE 325 MG TAB PO SCH ×3 (05:27→18:00)
[2020-04-22] MEDS: BACLOFEN 10 MG TAB PO SCH ×4 (05:27→21:57)
[2020-04-22 10:09] LABS: Hemoglobin 7.5 g/dL (12.2-16.2); White Blood Cell 8.9 10^3/uL (4.4-10.8)
[2020-04-22 10:12] LABS: Hematocrit 24.4 % (36.0-46.0); Mean Corpuscular Hemoglobin 25.7 pg (28.0-32.0); Platelet Count (auto) 229 10^3/uL (140-450); Red Blood Cells 2.93 10^6/uL (4.0-5.20)
[2020-04-22 10:20] LABS: Calcium 7.8 mg/dL (8.5-10.1); Potassium 4.7 mmol/L (3.5-5.1)
[2020-04-22 10:22] LABS: BUN/Creatinine Ratio 36.2
[2020-04-22 10:33] LABS: Basophils % (manual) 0 (0.0-2.0); Eosinophils % (manual) 0 (0-7); Metamyelocytes % 0; Myelocytes % 0; Promyelocytes % 0; Reactive Lymphocytes 0
[2020-04-22 12:12] LABS: Band Neutrophils % (manual) 5; Blast Cells 1; Lymphocytes % (manual) 57 (10.0-50.0); Monocytes % (manual) 6 (0-12)
[2020-04-22] MEDS: HYDROmorphone HCL 2 MG/ML VL IV PRN ×2 (17:12→20:47)
[2020-04-22] MEDS ORDERED: OXYCODONE W/ ACETAMINOPHEN 5/325MG TABLET PO PRN (21:45)
[2020-04-23] MEDS: HYDROmorphone HCL 2 MG/ML VL IV PRN ×4 (01:06→20:04)
[2020-04-23 02:19] LABS: Urine Bacteria MANY /hpf (None Seen); Urine Blood 1+ /uL (Negative); Urine Budding Yeast FEW /hpf (None Seen); Urine Hyaline Cast FEW /lpf (0 - 2); Urine Specific Gravity 1.016 (1.001-1.035); Urine WBC 354 /hpf (0 - 5); Urine WBC Clumps PRESENT /hpf (None Seen)
[2020-04-23 05:00] VITALS: BP 125/63
[2020-04-23] MEDS: BACLOFEN 10 MG TAB PO SCH ×4 (05:48→21:28)
[2020-04-23] MEDS: buPROPion HCL 100 MG TAB PO SCH ×3 (05:48→20:03)
[2020-04-23] MEDS: GABAPENTIN 100 MG CAP PO SCH ×3 (05:49→20:03)
[2020-04-23 06:31] LABS: Hemoglobin 7.2 g/dL (12.2-16.2); Mean Corpuscular Volume 84.4 fL (80.0-100.0)
[2020-04-23 06:34] LABS: Hematocrit 23.5 % (36.0-46.0); Mean Corpuscular Hemoglobin 25.7 pg (28.0-32.0); Mean Corpuscular Hgb Conc. 30.5 g/dL (32.0-36.0); Platelet Count (auto) 191 10^3/uL (140-450); Red Blood Cells 2.78 10^6/uL (4.0-5.20); Red Cell Distribution Width 18.4 % (11.8-14.3); White Blood Cell 6.5 10^3/uL (4.4-10.8)
[2020-04-23 06:51] LABS: Calcium 8.1 mg/dL (8.5-10.1); Magnesium 2.2 mg/dL (1.6-2.6); Potassium 4.7 mmol/L (3.5-5.1)
[2020-04-23 06:53] LABS: BUN/Creatinine Ratio 37.5
[2020-04-23 06:57] LABS: Basophils % (manual) 0 (0.0-2.0); Blast Cells 0; Eosinophils % (manual) 0 (0-7); Metamyelocytes % 0; Myelocytes % 0; Promyelocytes % 0
[2020-04-23 07:00] VITALS: BP 133/58
[2020-04-23 08:00] VITALS: BP 133/58
[2020-04-23] MEDS: FERROUS SULFATE 325 MG TAB PO SCH ×3 (09:13→18:00)
[2020-04-23] MEDS: FAMOTIDINE 20 MG TAB PO SCH (09:13)
[2020-04-23 10:51] LABS: Band Neutrophils % (manual) 4; Lymphocytes % (manual) 69 (10.0-50.0); Monocytes % (manual) 5 (0-12); Reactive Lymphocytes 1
[2020-04-23] MEDS: OXYCODONE W/ ACETAMINOPHEN 5/325MG TABLET PO PRN (14:11)
[2020-04-23 17:00] VITALS: BP 114/49
[2020-04-23] MEDS: ACETAMINOPHEN 500 MG TAB PO PRN (21:29)
[2020-04-23 22:00] VITALS: BP 115/53
[2020-04-24] VITALS (10 sets, daily range): BP systolic 105–124; BP diastolic 44–60
[2020-04-24] MEDS: HYDROmorphone HCL 2 MG/ML VL IV PRN ×5 (01:31→23:18)
[2020-04-24] MEDS: OXYCODONE W/ ACETAMINOPHEN 5/325MG TABLET PO PRN ×4 (01:32→22:37)
[2020-04-24] MEDS: GABAPENTIN 100 MG CAP PO SCH ×3 (05:32→22:00)
[2020-04-24] MEDS: buPROPion HCL 100 MG TAB PO SCH ×3 (05:32→22:00)
[2020-04-24] MEDS: BACLOFEN 10 MG TAB PO SCH ×4 (05:32→22:00)
[2020-04-24 07:52] LABS: White Blood Cell 6.4 10^3/uL (4.4-10.8)
[2020-04-24 07:54] LABS: Hematocrit 24.1 % (36.0-46.0); Hemoglobin 7.2 g/dL (12.2-16.2); Mean Corpuscular Hemoglobin 25.2 pg (28.0-32.0); Mean Corpuscular Hgb Conc. 29.9 g/dL (32.0-36.0); Mean Corpuscular Volume 84.4 fL (80.0-100.0); Platelet Count (auto) 211 10^3/uL (140-450); Red Blood Cells 2.86 10^6/uL (4.0-5.20); Red Cell Distribution Width 19.8 % (11.8-14.3)
[2020-04-24 08:02] LABS: Calcium 7.9 mg/dL (8.5-10.1); Potassium 4.6 mmol/L (3.5-5.1)
[2020-04-24 08:06] LABS: Basophils % (manual) 0 (0.0-2.0); Blast Cells 0; Eosinophils % (manual) 0 (0-7); Magnesium 2.6 mg/dL (1.6-2.6); Promyelocytes % 0
[2020-04-24] MEDS: FERROUS SULFATE 325 MG TAB PO SCH ×3 (08:15→17:14)
[2020-04-24 09:24] LABS: Band Neutrophils % (manual) 14; Lymphocytes % (manual) 53 (10.0-50.0); Metamyelocytes % 1; Monocytes % (manual) 3 (0-12); Myelocytes % 1; Reactive Lymphocytes 4
[2020-04-24] MEDS: FAMOTIDINE 20 MG TAB PO SCH (10:48)
[2020-04-24] MEDS ORDERED: FUROSEMIDE 40 MG/4 ML VIAL IV ONE (20:00)
[2020-04-25] VITALS (7 sets, daily range): BP systolic 98–136; BP diastolic 38–67
[2020-04-25] MEDS: BACLOFEN 10 MG TAB PO SCH ×4 (06:42→22:00)
[2020-04-25] MEDS: buPROPion HCL 100 MG TAB PO SCH ×3 (06:42→22:00)
[2020-04-25] MEDS: GABAPENTIN 100 MG CAP PO SCH ×3 (06:42→22:00)
[2020-04-25] MEDS: HYDROmorphone HCL 2 MG/ML VL IV PRN ×4 (06:43→20:28)
[2020-04-25 07:20] LABS: Platelet Count (auto) 194 10^3/uL (140-450); Red Cell Distribution Width 19.9 % (11.8-14.3); White Blood Cell 4.9 10^3/uL (4.4-10.8)
[2020-04-25 07:22] LABS: Hematocrit 26.5 % (36.0-46.0); Hemoglobin 8.1 g/dL (12.2-16.2); Mean Corpuscular Hemoglobin 26.2 pg (28.0-32.0); Mean Corpuscular Hgb Conc. 30.7 g/dL (32.0-36.0); Mean Corpuscular Volume 85.2 fL (80.0-100.0); Red Blood Cells 3.11 10^6/uL (4.0-5.20)
[2020-04-25 07:30] LABS: BUN/Creatinine Ratio 39.1; Calcium 7.6 mg/dL (8.5-10.1); Magnesium 2.4 mg/dL (1.6-2.6); Potassium 4.2 mmol/L (3.5-5.1)
[2020-04-25 07:35] LABS: Basophils % (manual) 0 (0.0-2.0); Blast Cells 0; Promyelocytes % 0
[2020-04-25] MEDS: FERROUS SULFATE 325 MG TAB PO SCH ×3 (08:15→17:31)
[2020-04-25] MEDS: FAMOTIDINE 20 MG TAB PO SCH (08:37)
[2020-04-25] MEDS: OXYCODONE W/ ACETAMINOPHEN 5/325MG TABLET PO PRN ×3 (08:38→23:55)
[2020-04-25 12:06] LABS: Eosinophils % (manual) 2 (0-7); Lymphocytes % (manual) 42 (10.0-50.0); Monocytes % (manual) 8 (0-12)
[2020-04-25 12:24] LABS: Band Neutrophils % (manual) 4; Metamyelocytes % 1; Myelocytes % 1; Reactive Lymphocytes 2
[2020-04-25] MEDS: FUROSEMIDE 40 MG/4 ML VIAL IV SCH (17:32)
[2020-04-25] MEDS: ACETAMINOPHEN 500 MG TAB PO PRN (18:58)
[2020-04-26] MEDS: ACETAMINOPHEN 500 MG TAB PO PRN ×2 (01:18→17:25)
[2020-04-26 05:00] VITALS: BP 122/49
[2020-04-26] MEDS: HYDROmorphone HCL 2 MG/ML VL IV PRN ×4 (05:45→21:42)
[2020-04-26] MEDS: FUROSEMIDE 40 MG/4 ML VIAL IV SCH ×2 (05:55→18:00)
[2020-04-26] MEDS: GABAPENTIN 100 MG CAP PO SCH ×3 (06:06→21:25)
[2020-04-26] MEDS: BACLOFEN 10 MG TAB PO SCH ×4 (06:06→21:25)
[2020-04-26] MEDS: buPROPion HCL 100 MG TAB PO SCH ×3 (06:06→21:26)
[2020-04-26] MEDS: OXYCODONE W/ ACETAMINOPHEN 5/325MG TABLET PO PRN ×3 (06:07→18:28)
[2020-04-26 07:53] LABS: Hemoglobin 8.6 g/dL (12.2-16.2); White Blood Cell 4.3 10^3/uL (4.4-10.8)
[2020-04-26 07:55] LABS: Hematocrit 27.5 % (36.0-46.0); Mean Corpuscular Hemoglobin 26.3 pg (28.0-32.0); Mean Corpuscular Hgb Conc. 31.1 g/dL (32.0-36.0); Mean Corpuscular Volume 84.6 fL (80.0-100.0); Platelet Count (auto) 207 10^3/uL (140-450); Red Blood Cells 3.25 10^6/uL (4.0-5.20); Red Cell Distribution Width 19.8 % (11.8-14.3)
[2020-04-26 08:00] VITALS: BP 108/46
[2020-04-26 08:12] LABS: Basophils % (manual) 0 (0.0-2.0); Blast Cells 0; Metamyelocytes % 0; Myelocytes % 0; Promyelocytes % 0
[2020-04-26 08:19] LABS: Potassium 4.1 mmol/L (3.5-5.1)
[2020-04-26 08:27] LABS: BUN/Creatinine Ratio 42.9; Calcium 8.2 mg/dL (8.5-10.1); Magnesium 2.3 mg/dL (1.6-2.6)
[2020-04-26] MEDS: FERROUS SULFATE 325 MG TAB PO SCH ×3 (08:41→18:26)
[2020-04-26] MEDS: cefTRIAXone 1GM/50ML D5W 50 ML IV SCH (08:41)
[2020-04-26] MEDS: FAMOTIDINE 20 MG TAB PO SCH (08:42)
[2020-04-26] MEDS: PANTOPRAZOLE 40 MG TAB PO SCH ×2 (11:03→21:26)
[2020-04-26 12:45] VITALS: BP 128/62
[2020-04-26 13:08] LABS: Band Neutrophils % (manual) 2; Eosinophils % (manual) 3 (0-7); Lymphocytes % (manual) 42 (10.0-50.0); Monocytes % (manual) 9 (0-12); Reactive Lymphocytes 1
[2020-04-26 17:00] VITALS: BP 109/45
[2020-04-26 22:00] VITALS: BP 115/43
[2020-04-27] VITALS: BP 115/43
[2020-04-27] MEDS: OXYCODONE W/ ACETAMINOPHEN 5/325MG TABLET PO PRN ×3 (00:17→12:11)
[2020-04-27 02:20] VITALS: BP 115/43
[2020-04-27 05:00] VITALS: BP 123/54
[2020-04-27] MEDS: FUROSEMIDE 40 MG/4 ML VIAL IV SCH (06:09)
[2020-04-27] MEDS: buPROPion HCL 100 MG TAB PO SCH ×3 (06:10→14:07)
[2020-04-27] MEDS: GABAPENTIN 100 MG CAP PO SCH ×2 (06:10→14:07)
[2020-04-27] MEDS: BACLOFEN 10 MG TAB PO SCH ×2 (06:10→12:10)
[2020-04-27 07:00] LABS: Basophils # (auto) 0 10 ^3/uL (0-0.2); Eosinophils # (auto) 0.1 10 ^3/uL (0-0.8); Lymphocytes # (auto) 2.1 10 ^3/uL (0.4-5.4); Monocytes # (auto) 0.4 10 ^3/uL (0-1.3); Neutrophils # (auto) 1.4 10 ^3/uL (1.6-8.6); Nucleated Red Blood Cells % 0.1 %
[2020-04-27 07:03] LABS: Basophils % (auto) 0.7 % (0.0-2.0); Hematocrit 27.6 % (36.0-46.0); Hemoglobin 8.5 g/dL (12.2-16.2); Lymphocytes % (auto) 52.5 % (10.0-50.0); Mean Corpuscular Hgb Conc. 30.8 g/dL (32.0-36.0); Mean Corpuscular Volume 84.4 fL (80.0-100.0); Monocytes % (auto) 9.2 % (0.0-12.0); Neutrophils % (auto) 35.6 % (37.0-80.0); Platelet Count (auto) 240 10^3/uL (140-450); Red Blood Cells 3.27 10^6/uL (4.0-5.20); White Blood Cell 4.1 10^3/uL (4.4-10.8)
[2020-04-27 07:15] LABS: BUN/Creatinine Ratio 32.7; Calcium 8.1 mg/dL (8.5-10.1); Magnesium 2.3 mg/dL (1.6-2.6); Potassium 4.3 mmol/L (3.5-5.1)
[2020-04-27 08:00] VITALS: BP 109/47
[2020-04-27] MEDS: FERROUS SULFATE 325 MG TAB PO SCH ×2 (09:42→12:10)
[2020-04-27] MEDS: HYDROmorphone HCL 2 MG/ML VL IV PRN ×2 (09:43→14:07)
[2020-04-27] MEDS: cefTRIAXone 1GM/50ML D5W 50 ML IV SCH (09:43)
[2020-04-27] MEDS: PANTOPRAZOLE 40 MG TAB PO SCH (09:43)
[2020-04-27 11:36] VITALS: BP 109/47
[2020-04-27 13:17] VITALS: BP 125/46
== END 2020-04-27 15:30 | disposition home health service (06) | DRG 811 ==
LOC: ER 13:22 → EDBD 13:22 → TELE 13:23 → TELE-CENTR 04-22 04:32
PROVIDERS: ADMIT Nurse Practitioner Acute Care; ATTEND Internal Medicine
PROC: 5A09357 Assistance with Respiratory Ventilation, Less than 24 Consecutive Hours, Continuous Positive Airway Pressure (ICD-10-PCS; 2020-04-22)
PROC: 5A09357 Assistance with Respiratory Ventilation, Less than 24 Consecutive Hours, Continuous Positive Airway Pressure (ICD-10-PCS; 2020-04-23)
PROC: 30233N1 Transfusion of Nonautologous Red Blood Cells into Peripheral Vein, Percutaneous Approach (ICD-10-PCS; principal; 2020-04-24)
PROC: 5A09357 Assistance with Respiratory Ventilation, Less than 24 Consecutive Hours, Continuous Positive Airway Pressure (ICD-10-PCS; 2020-04-24)
PROC: 5A09357 Assistance with Respiratory Ventilation, Less than 24 Consecutive Hours, Continuous Positive Airway Pressure (ICD-10-PCS; 2020-04-26)
PROC: 5A09357 Assistance with Respiratory Ventilation, Less than 24 Consecutive Hours, Continuous Positive Airway Pressure (ICD-10-PCS; 2020-04-27)
DX: D64.9 Anemia, unspecified (principal); J96.00 Acute respiratory failure, unspecified whether with hypoxia or hypercapnia; J15.9 Unspecified bacterial pneumonia; C91.10 Chronic lymphocytic leukemia of B-cell type not having achieved remission; N39.0 Urinary tract infection, site not specified; J44.0 Chronic obstructive pulmonary disease with (acute) lower respiratory infection; G82.20 Paraplegia, unspecified; Z20.822 Contact with and (suspected) exposure to COVID-19; M19.90 Unspecified osteoarthritis, unspecified site; G89.4 Chronic pain syndrome; I50.9 Heart failure, unspecified; Z88.2 Allergy status to sulfonamides; Z88.6 Allergy status to analgesic agent; Z91.040 Latex allergy status; Z74.01 Bed confinement status; Z79.891 Long term (current) use of opiate analgesic; Z82.3 Family history of stroke; Z82.49 Family history of ischemic heart disease and other diseases of the circulatory system; Z82.5 Family history of asthma and other chronic lower respiratory diseases
CPT/HCPCS: 36415; 71045; 80048; 80053; 81001; 82270; 83735; 84484; 85007; 85025; 85027; 85610; 85730; 86850; 86900; 86901; 86920; 87086; 87088; 87186; 87426; 94660; 96374; 96375; 97110; G0378; J0696; J2405

== ENCOUNTER 2020-09-25 10:22 | Inpatient (IN) | payer OTHER ==
[~2020-09-25] VITALS: Ht 165.1 cm; Wt 89.4 kg
[~2020-09-25 10:22] MED LIST changes: -PANT40T PO
[2020-09-25] MEDS ORDERED: SODIUM CHLORIDE 0.9% 1,000 ML IVB ONE (10:30)
[2020-09-25] MEDS ORDERED: SODIUM CHLORIDE 0.9% 1,000 ML IV ONE ×2 (10:30→15:15)
[2020-09-25] MEDS ORDERED: FLUMAZENIL 0.1 MG/ML INJ 10ML MDV IV ONE ×2 (10:45→11:15)
[2020-09-25 10:56] LABS: Basophils # (auto) 0 10 ^3/uL (0-0.2); Eosinophils # (auto) 0.1 10 ^3/uL (0-0.8); Monocytes # (auto) 0.4 10 ^3/uL (0-1.3); Neutrophils # (auto) 1.4 10 ^3/uL (1.6-8.6)
[2020-09-25 10:58] LABS: Hematocrit 33.1 % (36.0-46.0); Hemoglobin 9.5 g/dL (12.2-16.2); Lymphocytes % (auto) 51.7 % (10.0-50.0); Mean Corpuscular Hemoglobin 23.6 pg (28.0-32.0); Mean Corpuscular Hgb Conc. 28.8 g/dL (32.0-36.0); Monocytes % (auto) 9.9 % (0.0-12.0); Neutrophils % (auto) 34.4 % (37.0-80.0); Red Blood Cells 4.04 10^6/uL (4.0-5.20); White Blood Cell 3.9 10^3/uL (4.4-10.8)
[2020-09-25 10:59] LABS: Red Cell Distribution Width 20.8 % (11.8-14.3)
[2020-09-25 11:13] LABS: Albumin 2.7 g/dL (3.4-5.0); Anion Gap 3 (5-15); Blood Urea Nitrogen 18 mg/dL (7-18); Carbon Dioxide 28 mmol/L (21-32); Chloride 106 mmol/L (98-107); Glucose 75 mg/dL (74-106); Potassium 4.8 mmol/L (3.5-5.1); Sodium 137 mmol/L (136-145)
[2020-09-25 11:32] LABS: Alanine Aminotransferase 13 U/L (13-56); Alkaline Phosphatase 82 U/L (45-117); Aspartate Aminotransferase 15 U/L (15-37); BUN/Creatinine Ratio 29.5; Bilirubin, Total 0.2 mg/dL (0.2-1.0); Blood Alcohol < 3.0 mg/dL (0-5); GFR African American 125 mL/min; GFR Non-African American 103 mL/min; Total Protein 5.6 g/dL (6.4-8.2)
[2020-09-25 14:45] LABS: Amphetamine Screen, Urine NEGATIVE (NEGATIVE); Barbiturate Scree,Urine NEGATIVE (NEGATIVE); Benzodiazephine Screen, Urine NEGATIVE (NEGATIVE); Cannabinoid Screen, Urine NEGATIVE (NEGATIVE); Cocaine Screen, Urine NEGATIVE (NEGATIVE); Opiate Scree,Urine NEGATIVE (NEGATIVE); Phencyclidine Screen, Urine NEGATIVE (NEGATIVE)
[2020-09-25 14:50] LABS: Urine Bacteria MOD /hpf (None Seen); Urine Blood 2+ /uL (Negative); Urine Mucus FEW (None Seen); Urine Specific Gravity 1.018 (1.001-1.035); Urine WBC 3903 /hpf (0 - 5); Urine WBC Clumps PRESENT /hpf (None Seen)
[2020-09-25] MEDS ORDERED: SODIUM CHLORIDE 0.9% 1,000 ML IV SCH (15:15)
[2020-09-25] MEDS ORDERED: MORPHINE SULF INJ 2 MG/ML SYRINGE 1ML IV PRN (15:15)
[2020-09-25] MEDS ORDERED: ONDANSETRON HCL 4 MG/2 ML VIAL IV PRN (15:15)
[2020-09-25] MEDS ORDERED: ACETAMINOPHEN 325 MG RECT SUPP PR PRN (15:15)
[2020-09-25] MEDS ORDERED: NITROGLYCERIN 0.4 MG SL TAB SL PRN (15:15)
[2020-09-25] MEDS ORDERED: FUROSEMIDE 40 MG/4 ML VIAL IV ONE (15:30)
[2020-09-25 16:11] VITALS: BP 105/29
[2020-09-25] MEDS: SODIUM CHLORIDE 0.9% 1,000 ML IV SCH (18:59)
[2020-09-25] MEDS: ALBUTEROL SULF 2.5 MG/0.5ML(0.5%) NEB SOLN NEB PRN (20:11)
[2020-09-25] MEDS: IPRATROPIUM BROM 0.5 MG/2.5ML INH SOL NEB SCH (20:11)
[2020-09-25] MEDS: BUDESONIDE (INHALATION) 0.5 MG/2 ML NEB NEB SCH (20:12)
[2020-09-26] VITALS (7 sets, daily range): BP systolic 128–161; BP diastolic 49–62
[2020-09-26 04:16] LABS: Basophils # (auto) 0 10 ^3/uL (0-0.2); Basophils % (auto) 1.1 % (0.0-2.0); Eosinophils # (auto) 0 10 ^3/uL (0-0.8); Eosinophils % (auto) 1.1 % (0.0-7.0); Hemoglobin 9.3 g/dL (12.2-16.2); Lymphocytes # (auto) 1.5 10 ^3/uL (0.4-5.4); Lymphocytes % (auto) 51.2 % (10.0-50.0); Mean Corpuscular Hemoglobin 24.2 pg (28.0-32.0); Mean Corpuscular Hgb Conc. 29.9 g/dL (32.0-36.0); Monocytes # (auto) 0.3 10 ^3/uL (0-1.3); Monocytes % (auto) 8.9 % (0.0-12.0); Neutrophils # (auto) 1.1 10 ^3/uL (1.6-8.6); Neutrophils % (auto) 37.7 % (37.0-80.0); Nucleated Red Blood Cells % 0.3 %; Red Blood Cells 3.82 10^6/uL (4.0-5.20); Red Cell Distribution Width 21.2 % (11.8-14.3); White Blood Cell 2.9 10^3/uL (4.4-10.8)
[2020-09-26 04:39] LABS: INR 1.03 (0.9-1.15)
[2020-09-26 05:54] LABS: Potassium 4.3 mmol/L (3.5-5.1)
[2020-09-26 06:03] LABS: Albumin 2.6 g/dL (3.4-5.0); BUN/Creatinine Ratio 38.3; Bilirubin, Total 0.3 mg/dL (0.2-1.0); Magnesium 2.5 mg/dL (1.6-2.6); Total Protein 5.3 g/dL (6.4-8.2)
[2020-09-26] MEDS: IPRATROPIUM BROM 0.5 MG/2.5ML INH SOL NEB SCH ×3 (06:32→18:44)
[2020-09-26] MEDS: BUDESONIDE (INHALATION) 0.5 MG/2 ML NEB NEB SCH ×2 (06:32→18:44)
[2020-09-26] MEDS: ALBUTEROL SULF 2.5 MG/0.5ML(0.5%) NEB SOLN NEB PRN ×3 (06:32→18:44)
[2020-09-26] MEDS ORDERED: GABAPENTIN 100 MG CAP PO ONE (07:15)
[2020-09-26] MEDS ORDERED: BACLOFEN 10 MG TAB PO ONE ×2 (07:15)
[2020-09-26] MEDS ORDERED: cefTRIAXone 1GM/50ML D5W 50 ML IV SCH (09:00)
[2020-09-26] MEDS ORDERED: OXYCODONE W/ ACETAMINOPHEN 5/325MG TABLET PO PRN (10:45)
[2020-09-26] MEDS: ENOXAPARIN SOD 40 MG/0.4 ML SYRINGE SC SCH (10:50)
[2020-09-26] MEDS: PANTOPRAZOLE 40 MG/10 ML VIAL INJ IV SCH (11:00)
[2020-09-26] MEDS: SODIUM CHLORIDE 0.9% 1,000 ML IV SCH (11:41)
[2020-09-26] MEDS: BACLOFEN 10 MG TAB PO SCH ×3 (12:00→21:53)
[2020-09-26] MEDS: GABAPENTIN 100 MG CAP PO SCH ×2 (13:49→21:53)
[2020-09-26] MEDS: OXYCODONE W/ ACETAMINOPHEN 5/325MG TABLET PO PRN (19:57)
[2020-09-26] MEDS: MUPIROCIN 2% OINT 15gm or 22gm EACHNOSTRI SCH (21:53)
[2020-09-27] MEDS ORDERED: TEMAZEPAM 15 MG CAP PO ONE (00:45)
[2020-09-27] MEDS: OXYCODONE W/ ACETAMINOPHEN 5/325MG TABLET PO PRN ×2 (02:40→09:16)
[2020-09-27 05:28] VITALS: BP 151/75
[2020-09-27] MEDS: GABAPENTIN 100 MG CAP PO SCH ×2 (05:40→13:38)
[2020-09-27] MEDS: BACLOFEN 10 MG TAB PO SCH ×2 (05:41→12:02)
[2020-09-27 06:12] LABS: White Blood Cell 2.4 10^3/uL (4.4-10.8)
[2020-09-27 06:15] LABS: Hematocrit 31.3 % (36.0-46.0); Hemoglobin 9.5 g/dL (12.2-16.2); Mean Corpuscular Hemoglobin 24.1 pg (28.0-32.0); Mean Corpuscular Hgb Conc. 30.4 g/dL (32.0-36.0); Mean Corpuscular Volume 79.5 fL (80.0-100.0); Red Blood Cells 3.94 10^6/uL (4.0-5.20)
[2020-09-27 06:27] LABS: Red Cell Distribution Width 20.5 % (11.8-14.3)
[2020-09-27 06:29] LABS: Band Neutrophils % (manual) 0; Basophils % (manual) 0 (0.0-2.0); Blast Cells 0; Metamyelocytes % 0; Myelocytes % 0; Promyelocytes % 0
[2020-09-27] MEDS: IPRATROPIUM BROM 0.5 MG/2.5ML INH SOL NEB SCH ×2 (06:32→12:00)
[2020-09-27] MEDS: ALBUTEROL SULF 2.5 MG/0.5ML(0.5%) NEB SOLN NEB PRN (06:32)
[2020-09-27] MEDS: BUDESONIDE (INHALATION) 0.5 MG/2 ML NEB NEB SCH (06:32)
[2020-09-27 06:33] LABS: BUN/Creatinine Ratio 35.4; Calcium 8.4 mg/dL (8.5-10.1); Potassium 4.6 mmol/L (3.5-5.1)
[2020-09-27 07:07] LABS: Eosinophils % (manual) 1 (0-7); Lymphocytes % (manual) 59 (10.0-50.0); Monocytes % (manual) 8 (0-12); Reactive Lymphocytes 5
[2020-09-27 09:00] VITALS: BP 146/59
[2020-09-27] MEDS: ENOXAPARIN SOD 40 MG/0.4 ML SYRINGE SC SCH (09:29)
[2020-09-27] MEDS: PANTOPRAZOLE 40 MG/10 ML VIAL INJ IV SCH (09:30)
[2020-09-27] MEDS: MUPIROCIN 2% OINT 15gm or 22gm EACHNOSTRI SCH (09:30)
[2020-09-27 13:00] VITALS: BP 148/56
[2020-09-27] MEDS ORDERED: MUPI2OIN2 EACHNOSTRI (13:11)
[2020-09-27 14:40] VITALS: BP 117/46
== END 2020-09-27 15:30 | disposition home or self-care (01) | DRG 92 ==
LOC: ER 10:22 → EDBD 10:22 → TELE 15:04 → DOU IN ICU 09-26 07:16 → TELE-CENTR 09-26 12:48
PROVIDERS: ADMIT Family Medicine; ATTEND Family Medicine
DX: G92 Toxic encephalopathy (principal); C85.90 Non-Hodgkin lymphoma, unspecified, unspecified site; E44.0 Moderate protein-calorie malnutrition; G95.9 Disease of spinal cord, unspecified; N39.0 Urinary tract infection, site not specified; Z20.822 Contact with and (suspected) exposure to COVID-19; G82.20 Paraplegia, unspecified; D64.9 Anemia, unspecified; E78.5 Hyperlipidemia, unspecified; F32.9 Major depressive disorder, single episode, unspecified; F41.9 Anxiety disorder, unspecified; G89.29 Other chronic pain; I11.0 Hypertensive heart disease with heart failure; I50.9 Heart failure, unspecified; J44.9 Chronic obstructive pulmonary disease, unspecified; M19.90 Unspecified osteoarthritis, unspecified site; T42.4X5A Adverse effect of benzodiazepines, initial encounter; Z82.3 Family history of stroke; Z82.49 Family history of ischemic heart disease and other diseases of the circulatory system; Z82.5 Family history of asthma and other chronic lower respiratory diseases; Z87.440 Personal history of urinary (tract) infections; Z90.710 Acquired absence of both cervix and uterus; Y92.89 Other specified places as the place of occurrence of the external cause; Z68.32 Body mass index [BMI] 32.0-32.9, adult; Z88.2 Allergy status to sulfonamides; Z79.899 Other long term (current) drug therapy; Z87.891 Personal history of nicotine dependence; Z88.8 Allergy status to other drugs, medicaments and biological substances; Z88.6 Allergy status to analgesic agent; Z88.1 Allergy status to other antibiotic agents; Z91.040 Latex allergy status; D72.819 Decreased white blood cell count, unspecified
CPT/HCPCS: 36415; 70450; 71045; 80048; 80053; 80307; 80320; 81001; 83735; 83880; 84443; 84484; 85007; 85025; 85027; 85610; 87040; 87077; 87081; 87086; 87088; 87186; 87205; 87426; 93005; 93306; 94640; 96361; 96374; 96375; C9113; G0378; J0696